=== PATIENT | male | born 1945 | race Caucasian/White ===

== ENCOUNTER 2017-03-26 16:52 | Inpatient (IN) | payer OTHER ==
[~2017-03-26] VITALS: Ht 182.9 cm; Wt 100.2 kg
[2017-03-26] VITALS (7 sets, daily range): BP systolic 103–183; BP diastolic 63–97
--- NOTE | ~2017-03-26 | HC ---
[facility] [place] [address] CONSULTATION Name: SILVANO JACKSON Room #: 244- ADM IN M.R.#: [id number] Admission: 03/26/17 Attend Phys: Olman Brown MD Discharge: Date of : 43 Report #: [id number] THIS REPORT FOR: //name// CC: Olman Sesayradha DATE OF SERVICE: 03/30/2017 ENDOCRINE PROGRESS NOTE Glucoses slowly decreasing in spite of reduction in bedtime basal insulin, this is the only insulin the patient is receiving. FBS lower at 93, decreasing to 73 at lunch, necessitating switch to D5 IV fluids in preparation of tube feeding possibly starting later today. IV glucose is necessary at this time to prevent hypoglycemia as well as any protein wasting prior to institution of higher level tube feeding. Fluid and electrolytes, now being treated by Nephrology. Sodium slightly increased, but calculated serum osmolality actually dropped slightly, otherwise, as per above notes. <ELECTRONICALLY SIGNED> By: Rolan Becerra MD 03/31/17 1217 1500 0017 Rolan Becerra MD /nt
--- NOTE | ~2017-03-26 | EEG ---
[facility] [place] [address] ELECTROENCEPHALOGRAM Name: SILVANO JACKSON Room #: 244-P ADM IN M.R.#: [id number] Admission: 03/26/17 Attend Phys: Olman Brown MD Discharge: Date of : 43 Report #: [id number] THIS REPORT FOR: //name// CC: Olman Moreno [facility] DATE OF SERVICE: 03/27/2017 This patient is being evaluated for altered mental status. The patient's background activity is difficult to determine because a lot of muscle artifact is present, but appeared to be about 8 Hz and 30 microvolts. It is intermixed with theta range slowing on both sides. Photic stimulation is unremarkable. IMPRESSION: Moderately abnormal EEG because it is disorganized and poorly formed and is intermixed with theta range slowing that is a nonspecific abnormality, which can occur with encephalopathy, effect of psychotropic medication, dementia, etc. Clinical correlation and further workup is recommended as clinically indicated. Thank you very much for this referral. <ELECTRONICALLY SIGNED> By: Juliocesar Quintanilla MD 04/01/17 1258 1708 1731 Juliocesar Quintanilla MD /nt
--- NOTE | ~2017-03-26 | HC ---
[facility] [place] [address] CONSULTATION Name: SILVANO JACKSON Room #: 204-P [facility] IN M.R.#: [id number] Admission: 03/26/17 Attend Phys: Olman Brown MD Discharge: Date of : 43 Report #: [id number] THIS REPORT FOR: //name// CC: Olman Moreno [facility] DATE OF SERVICE: 04/04/2017 ENDOCRINE PROGRESS NOTE Glucoses are relatively stable with switch to feeding. Readjusting insulin q.i.d. FBS appropriate at 144 after readjustment of bedtime Tresiba. We will continue to modify insulin dosage. Now that the patient is alert and eating scheduled oral diet without difficulty. <ELECTRONICALLY SIGNED> By: Rolan Becerra MD 04/07/17 1301 1725 024 Rolan Becerra MD /nt
--- NOTE | ~2017-03-26 | HC ---
[facility] [place] [address] CONSULTATION Name: SILVANO JACKSON Room #: 204-P [facility] IN M.R.#: [id number] Admission: 03/26/17 Attend Phys: Olman Brown MD Discharge: 04/07/17 Date of : 43 Report #: [id number] THIS REPORT FOR: //name// CC: Olman Moreno [facility] DATE OF SERVICE: 04/07/2017 Glucoses remain stable, but mildly elevated. FBS slightly elevated, but lower at 197. Highest glucose is 256 at 12 O'clock. The patient is scheduled for dismissal today. If this occurs, we will discharge on Aspart or Lispro t.i.d. with meals at low dose and either Tresiba or the patient's prior concentrated Glargine at bedtime, again at much lower doses than he was on prior to admission. The patient to follow diet. Monitor glucose and follow up with me if desired. Discharge plans in progress. <ELECTRONICALLY SIGNED> By: Rolan Becerra MD 04/08/17 1225 0830 11 Rolan Becerra MD /nt
--- NOTE | ~2017-03-26 | HC ---
[facility] [address] [place] [address] CONSULTATION Name: SILVANO JACKSON Room #: 204-P [facility]..#: [id number] Admission: 03/26/17 Attend Phys: Olman Brown MD Discharge: 04/07/17 Date of : 43 Report #: [id number] THIS REPORT FOR: //name// CC: Olman Sesayradha DATE OF SERVICE: 04/07/2017 HISTORY OF PRESENT ILLNESS: The patient is a 71-year-old white male who was admitted with acute mental status changes. He was noted to have insulin-dependent diabetes mellitus, was found on the drive way, apparently may have been there for up to 4 hours. He was not responding. He was noted to have blood sugar greater than 900, was diagnosed with a hyperosmolar coma. He has gradually improved, was noted to have a metabolic encephalopathy. EEG showed moderately abnormal cerebral dysfunction. He was noted to have pseudohyponatremia. He also has been monitored regarding acute renal insufficiency. He was transferred out of the ICU. Neurology has been involved as well as Nephrology and Internal Medicine. He continues to have some cognitive safety concerns along with balance deficits and we are seeing him in rehabilitation medicine consultation. PAST MEDICAL HISTORY: Prior coronary artery bypass grafting, history of chronic kidney problems, insulin-dependent diabetes mellitus, hypertension, diabetes, stage 4 kidney disease, diabetes noted to be insulin-dependent. MEDICATIONS: Please see the full medication listing. ALLERGIES: No known drug allergies. SOCIAL HISTORY: [place] , [place] 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 He has been involved in assisting around the property running the lawnmower etc. The patient and his will keep in contact intermittently during the day. The has intermittently gone home to check in on him. She cannot get a hold when he leaves his phone somewhere. She did have some questions regarding Life Alert in the future. REVIEW OF SYSTEMS: Did not offer any current complaints of chest pain, shortness of breath, abdominal discomfort. He does have premorbid distal lower extremity numbness with peripheral neuropathy. PHYSICAL EXAMINATION: GENERAL: He is a 71-year-old white male in no obvious distress. He is alert, pleasant, and obese. He follows basic 1 step commands without difficulty. VITAL SIGNS: Temperature 97.8, pulse 60, respirations 16, blood pressure 168/74. NEUROLOGIC: Facies appeared symmetric. Follows basic 1 step commands. Some [facility] [address] [place] [address] CONSULTATION Name: SILVANO JACKSON Room #: 204-P [facility] IN ..#: [id number] Admission: 03/26/17 Attend Phys: Olman Brown MD Discharge: 04/07/17 Date of : 43 Report #: [id number] decreased safety insight was noted, but overall is communicative and pleasant. Tends to defer some answers to his . Facies appeared symmetric. EXTREMITIES: Functional range of motion of both upper extremities with strength grade 4+/5. DTRs are trace to 1. Lower extremities, distal lower extremity numbness, stock in distribution consistent with his peripheral neuropathy. Lower extremity strength is a grade 4 to 4-/5. DTRs are trace to 1. He was min assist with sit to stand. He did ambulate 100 feet mod assist with a front-wheeled walker, some retropulsion. ASSESSMENT: This is a 71-year-old white male with the following problem list: 1. Toxic metabolic encephalopathy. 2. Episode of nonketotic hyperosmolar coma. 3. Initial blood sugar greater than 900. 4. Acute renal insufficiency. 5. Stool hyponatremia. 6. EEG with moderately abnormal cerebral dysfunction. 7. Insulin-dependent diabetes mellitus. 8. Premorbid peripheral neuropathy with diabetes. 9. Hypertension. 10. Past history of coronary artery bypass graft surgery. PLAN: The patient is a candidate for an acute in-hospital inpatient rehabilitation stay. From a preadmission screening perspective: 1. Prior level of function is well delineated above. 2. Expect level of improvement would be for the patient to become modified independent with transfers, mobility and ADLs, so that he can hopefully return back to the home setting. Goal would be to improve his overall cognition and safety as well. Would anticipate a fairly short length of stay, probably 1-2 weeks and potentially longer depending upon how he improves with his balance and CT issues cognition, etc. 3. Evaluation of the patient's risk for clinical complications. He does have the multiple medical comorbidities as noted above. 4. Condition that caused the need for rehabilitation would be the toxic metabolic encephalopathy with the previously noted hyperosmolar coma. 5. Treatments needed would include PT, OT and speech 1 hour per day each five days a week throughout the duration of the acute inpatient rehabilitation stay. 6. Anticipated discharge destination would be back to the home setting with his . He will likely need some home healthcare and likely a Life Alert as discussed above. 7. Anticipated post-discharge treatments would be as noted above. 8. The patient meets diagnostic criteria for an acute in-hospital inpatient rehabilitation stay. He meets medical necessity criteria with the multiple medical comorbidities as noted above. He does have the tolerance for an acute [facility] [address] [place] [address] CONSULTATION Name: SILVANO JACKSON Room #: 204-P [facility] IN ..#: [id number] Admission: 03/26/17 Attend Phys: Olman Brown MD Discharge: 04/07/17 Date of : 43 Report #: [id number] inpatient rehab level of care and has appropriate discharge goals back to the home setting. <ELECTRONICALLY SIGNED> By: Rolan Hernandez MD 04/10/17 1608 1101 0426 Rolan Hernandez MD /nt
--- NOTE | ~2017-03-26 | HC ---
[facility] [place] [address] CONSULTATION Name: SILVANO JACKSON Room #: 244-P [facility] IN M.R.#: [id number] Admission: 03/26/17 Attend Phys: Olman Brown MD Discharge: Date of : 43 Report #: [id number] THIS REPORT FOR: //name// CC: Olman Moreno [facility] DATE OF SERVICE: 03/31/2017 Glucoses stable with reduced dosage of basal insulin. The patient now on increasing rates of tube feeding and off of D5 supplementation. FBS slightly higher at 151. Highest glucose past day equals 88 at 22:00. Total insulin dosage yesterday decreased to 11 units, but may need to be increased with escalation of tube feeding. <ELECTRONICALLY SIGNED> By: Rolan Becerra MD 04/01/17 1055 1221 1957 Rolna Becerra MD /nt
--- NOTE | ~2017-03-26 | HC ---
[facility] [place] [address] CONSULTATION Name: SILVANO JACKSON Room #: 204-P ADM IN M.R.#: [id number] Admission: 03/26/17 Attend Phys: Olman Brown MD Discharge: Date of : 43 Report #: [id number] THIS REPORT FOR: //name// CC: Olman Moreno [facility] DATE OF SERVICE: 04/05/2017 ENDOCRINE PROGRESS NOTE Readjusting q.i.d. insulin to improve glucose control. Also, adding in linagliptin for insulin sparing. P.o. intake stable and normal. FBS equals 204. Highest glucose past day equals 217 at 1700. We will continue to readjust insulin as patient's condition improves. <ELECTRONICALLY SIGNED> By: Rolan Becerra MD 04/06/17 1226 1218 1911 Rolan Becerra MD /nt
--- NOTE | ~2017-03-26 | HC ---
[facility] [place] [address] CONSULTATION Name: SILVANO JACKSON Room #: 244-P [facility] IN M.R.#: [id number] Admission: 03/26/17 Attend Phys: Olman Brown MD Discharge: Date of : 43 Report #: [id number] THIS REPORT FOR: //name// CC: Josh Zamarripa DATE OF SERVICE: 03/27/2017 NEPHROLOGY CONSULTATION DATE OF SERVICE: 03/27/2017 ATTENDING PHYSICIAN: Dr. Brown. REASON FOR CONSULTATION: [id number] kidney disease. HISTORY OF PRESENT ILLNESS: This 71-year-old patient was found poorly responsive and confused at home. He was taken to the Emergency Room and found to have a very high blood sugar. Further evaluation included a negative CAT scan. He was admitted and treated with insulin, then IV fluids. He has gradually improved his numbers and his mental status is lightened and he is now seen in consultation. He has got chronic kidney disease of some duration with elevated creatinine and he had proteinuria on dipstick. PAST MEDICAL HISTORY: He has had coronary artery disease, previous coronary bypass and PCI with coronary stents. He has had hypertension, history of pancreatitis, formerly alcohol abuse, but apparently no longer, mastoiditis treated surgically, and appendectomy. Further history is difficult to obtain as the patient's mental status continues to be very poor. He is seen in ICU, mostly the records taken from the electronic medical records. HOME MEDICATIONS: Including lorazepam, Avodart, metoprolol XL 25 mg daily, insulin, glyburide 5 mg b.i.d., lisinopril 10 mg daily, furosemide 20 mg daily, OxyContin. FAMILY HISTORY: Unobtainable, please see old charts. REVIEW OF SYSTEMS: Unobtainable at the current time due to mental status. SOCIAL HISTORY: Apparently lives at home with his , never smoker, previous alcohol abuse, no longer. PHYSICAL EXAMINATION: GENERAL: This is an elderly gentleman seen in his hospital bed in the ICU. SKIN: Unremarkable, good turgor. SKELETAL: Shows him to be somewhat overweight, well-developed, well nourished. HEENT: Extraocular movements cannot be tested due to his mental status, and he [facility] [address] [address] CONSULTATION Name: SILVANO JACKSON LEAH Room #: [address] [place] [address] IN [facility].#: [id number] Admission: 03/26/17 Attend Phys: Olman Brown MD Discharge: Date of : 43 Report #: [id number] is keeping his eyes tightly shut. He has nasal cannula in place. NECK: Supple. I hear no carotid bruits. CHEST: Slightly coarse breath sounds. HEART: Regular, slightly distant. ABDOMEN: Completely soft and nontender with what looks like a cholecystectomy scar in the right upper quadrant. EXTREMITIES: Show no edema. Pulses are intact. LABORATORY DATA: Initial glucose was 939 with sodium of 126, creatinine currently at 1.8. Previous creatinines in the computer from 4 years ago are more in the 2.5 region. ASSESSMENT AND PLAN: 1. Chronic kidney disease, ____ chronic kidney disease, now with 2+ proteinuria, likely diabetic nephropathy, it is unclear as to whether he is followed by a vamp seamer. We will investigate. He is appropriately on angiotensin converting enzyme inhibitor. I will check urinary proteins. 2. Hyperosmolar coma. This is improving with hypotonic fluid administration and sugars are coming down. 3. History of coronary artery disease status post coronary bypass and PCI with stents. 4. History of alcoholism with pancreatitis. 5. History of mastoiditis requiring surgery. 6. Hypertension. <ELECTRONICALLY SIGNED> By: Dereje Salgado MD 04/01/17 1143 0752 0954 Dereje Salgado MD /nt
--- NOTE | ~2017-03-26 | HC ---
[facility] [place] [address] CONSULTATION Name: SILVANO JACKSON Room #: 244-P [facility] IN M.R.#: [id number] Admission: 03/26/17 Attend Phys: Olman Brown MD Discharge: Date of : 43 Report #: [id number] THIS REPORT FOR: //name// [facility]: [facility] DATE OF SERVICE: 04/01/2017 ENDOCRINE PROGRESS NOTE Glucose stable, allowing for tapering off bedtime basal insulin. This may be given that the patient has pulled out feeding tube and is no longer receiving caloric intake at least for the present. FBS stable at 139. Highest glucose best equals 151 at 0700. We will continue to monitor and readjust insulin, which is currently at 9 units total per day. <ELECTRONICALLY SIGNED> By: Rolan Becerra MD 04/02/17 0822 1058 1121 Rolan Becerra MD /nt
--- NOTE | ~2017-03-26 | HC ---
[facility] [place] [address] CONSULTATION Name: SILVANO JACKSON Room #: 244-P [facility] IN M.R.#: [id number] Admission: 03/26/17 Attend Phys: Olman Brown MD Discharge: Date of : 43 Report #: [id number] THIS REPORT FOR: //name// [facility] DATE OF SERVICE: 04/02/2017 ENDOCRINE PROGRESS NOTE Glucoses lower without feeding. Slightly higher now that the patient is back on tube feeding at full rate. No true hypoglycemia. FBS stable at 126. We will continue to monitor and treat accordingly. Total insulin dosage yesterday decreased to 8 units. <ELECTRONICALLY SIGNED> By: Rolan Becerra MD 04/03/17 1322 0821 0932 Rolan Becerra MD /nt
--- NOTE | ~2017-03-26 | HC ---
[facility] [place] [address] CONSULTATION Name: SILVANO JACKSON Room #: [facility] IN .R.#: [id number] Admission: 03/26/17 Attend Phys: Olman Brown MD Discharge: Date of : 43 Report #: [id number] THIS REPORT FOR: //name// CC: Josh Zamarripa DATE OF SERVICE: 03/26/2017 ENDOCRINE CONSULTATION DATE OF SERVICE: 03/26/2017. SUBJECTIVE: A 71-year-old white male admitted with decreased mental status, hyperglycemia, pancreatitis, etc. History is limited and apparently obtained from the family as the patient is unable to give any information. The patient apparently has a history of alcoholism and pancreatitis, but is reported to have quit drinking many years ago. He also has a history of diabetes and some element of renal disease and has apparently been noncompliant with recommendations for both of these disorders. He is apparently not on any specific diet. He has apparently had prescriptions for insulin, which he has not filled. There is no information regarding recent or long-term glucose control, hemoglobin A1c or other information. The patient was apparently found a comatose and brought to the Emergency Room where glucose was noted to be greater than 900 and the patient appeared to be nonacidotic and in a hyperosmolar state. The patient has been given limited IV fluids and put on insulin drip as well as IV potassium, blood sugar has fallen significantly as would be expected with the intravenous insulin. Otherwise, there is no pertinent clinical information available except for the information mentioned above. CURRENT MEDICATIONS: At the time of consultation include a low dose IV fluids, potassium, olanzapine, valproate, magnesium oxide, insulin by drip at 8 units per hour, haloperidol and possibly other medication. OBJECTIVE: LABORATORY DATA: Admission glucose was 939, quickly dropping to 671 with intravenous glucose and later in the mid 400s, sodium 133, potassium 4.8, chloride 98, CO2 24, anion gap 11, BUN 27, creatinine 2.5 (which is similar to prior values), AST 34, lipase 1131, total bilirubin 0.5, calcium 9.6, phosphorus 3.8, magnesium 2.2, alkaline phosphatase 146, SGPT 58, total protein 7.4, albumin 3.5, pH was essentially within normal limits. PHYSICAL EXAMINATION: GENERAL: Well-nourished, well-developed, obese 71-year-old white male, in no acute distress. The patient is not responsive to verbal or tactile stimuli. [place] [address] CONSULTATION Name: SILVANO JACKSON Room #: 244-P [facility]#: [id number] Admission: 03/26/17 Attend Phys: Olman Brown MD Discharge: Date of : 43 Report #: [id number] VITAL SIGNS: Height is reported by family to be 6 feet and weight 230 pounds. The patient is 98.6 by one determination and 101.7 by another. Skin turgor is definitely diminished. Heart rate 87 and regular. Blood pressure 138/97. EYES: PERRL. CHEST: Clear. HEART: Regular rhythm without murmurs, rubs or gallops. ABDOMEN: Benign, without masses, tenderness, organomegaly. Bowel sounds active. EXTREMITIES: Show no edema, cyanosis or clubbing. Peripheral pulses 2+ and equal bilaterally. Deep tendon reflexes 2+ bilaterally. ASSESSMENT: 1. Diabetes mellitus out of control with chronic poor compliance and hyperosmolar coma. The patient does not have ketoacidosis, but unfortunately has been treated with limited fluid and relatively high dose insulin, which can actually worsen peripheral hypoxia by interfering with oxygen delivery and peripheral tissues. The patient's main problem at this time is not hyperglycemia, but severe dehydration. 2. Exogenous obesity with insulin resistance and hyperinsulinemia. 3. Moderate chronic renal failure. 4. Chronic poor compliance, apparently in all areas of medical care. PLAN: 1. We will evaluate prior control with hemoglobin A1c and check to see if the patient is making endogenous insulin through use of C-peptide. 2. We will hydrate vigorously monitoring renal function. This should allow for glucose lowering by itself without needing intervention with insulin. We will then utilize low-dose insulin as needed to fine tune glucose control. 3. Meanwhile, we will monitor electrolytes, BUN, creatinine, phosphorus, etc., to avoid any metabolic abnormalities that may develop with treatment. 4. Hopefully, the patient's mental status will return to whatever it was prior to this event, it is not clear whether the patient will be receptive to any diet and diabetes education to improve compliance in the future and avoid repetition of these episodes. Thank you very much for this consultation. I will continue to follow the patient with you for evaluation and treatment of diabetes mellitus and abnormalities. <ELECTRONICALLY SIGNED> By: Rolan Becerra MD 03/27/17 1110 2246 0023 Rolan Becerra MD /nt
--- NOTE | ~2017-03-26 | HC ---
[facility] [place] [address] CONSULTATION Name: SILVANO JACKSON Room #: 244-P [facility] IN M.R.#: [id number] Admission: 03/26/17 Attend Phys: Olman Brown MD Discharge: Date of : 43 Report #: [id number] THIS REPORT FOR: //name// [facility]: [facility] DATE OF SERVICE: 03/29/2017 Mental status may be slightly clear, but remains severely depressed. Laboratory studies continue to stabilize. Sodium has plateaued at 141, potassium 3.5, chloride 111, CO2 20, BUN 10, creatinine 1.5, glucose 48, phosphorus 3.2. Urine and plasma osmolality pending. Calculated serum osmolality is still acceptable at 295 yesterday and 294 today. This is assuming that sodium does not continue to increase, which would be a concern given the potential for recent brain injury and neurologic abnormalities due to severe alterations in serum osmolality. We will continue to monitor. Glucoses have been well controlled with only low dose basal insulin. <ELECTRONICALLY SIGNED> By: Rolan Becerra MD 03/30/17 1454 1147 0243 Rolan Becerra MD /nt
--- NOTE | ~2017-03-26 | HC ---
[facility] [place] [address] CONSULTATION Name: SILVANO JACKSON Room #: 244- ADM IN M.R.#: [id number] Admission: 03/26/17 Attend Phys: Olman Brown MD Discharge: Date of : 41 Report #: [id number] THIS REPORT FOR: //name// CC: Olman Zamarripa DATE OF SERVICE: 03/28/2017 ENDOCRINE PROGRESS NOTE: Mental status continues to be diminished; however, laboratory studies continue to improve. Sodium 139, potassium 4.3, chloride 109, CO2 20. BUN has dropped to 14, creatinine to 1.6. Phosphorus was replaced with one dose of IV potassium phosphate and is now up to 39. Glucoses have improved with low dose prandial and one dose of basal insulin overnight. Hemoglobin A1c highly elevated at 15.2 indicating as expected very poor long-term prior glucose control. <ELECTRONICALLY SIGNED> By: Rolan Becerra MD 03/29/17 1140 1054 1232 Rolan Becerra MD /nt
--- NOTE | ~2017-03-26 | HC ---
[facility] [place] [address] CONSULTATION Name: SILVANO JACKSON Room #: 244-P ADM IN M.R.#: [id number] Admission: 03/26/17 Attend Phys: Olman Brown MD Discharge: Date of : 41 Report #: [id number] THIS REPORT FOR: //name// CC: Olman Moreno [facility] DATE OF SERVICE: 03/30/2017 ADDENDUM: Review of total I and O's since admission shows the patient has plus only 6 liters while it would be expected that he would have needed to regain 9-12 liters after being admitted with hyperosmolar coma and severe dehydration. We will continue to monitor to ensure that diuresis does not ensue. <ELECTRONICALLY SIGNED> By: Rolan Becerra MD 03/31/17 1218 1504 0007 Rolan Becerra MD /nt
--- NOTE | ~2017-03-26 | HC ---
[facility] [place] [address] CONSULTATION Name: SILVANO JACKSON Room #: 204-P ADM IN M.R.#: [id number] Admission: 03/26/17 Attend Phys: Olman Brown MD Discharge: Date of : 41 Report #: [id number] THIS REPORT FOR: //name// [facility]: [facility] DATE OF SERVICE: 04/06/2017 ENDOCRINE PROGRESS NOTE Glucoses are stable, but still mildly high in spite of slight cautious increases in insulin dosage. FBS mildly elevated at 215. Highest glucose past day equals 239 at 12:00. Continuing linagliptin for insulin sparing, dietary intake normalizing. We will continue to cautiously readjust insulin while the patient's education continues. <ELECTRONICALLY SIGNED> By: Rolan Becerra MD 04/07/17 0826 1230 2305 Rolan Becerra MD /nt
--- NOTE | ~2017-03-26 | EKG ---
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 : [id number] Requested By: Viktor Vargas Order Number: [id number] MD: Jem Pascual Measurements Intervals [place] Rate: 83 P: VT: QRS: 93 QRSD: 118 T: 126 QT: 393 QTc: 462 Interpretive Statements Sinus rhythm Left posterior fascicular block Nonspecific ST and T wave abnormality Compared to ECG 03/22/2013 03:47:40 No significant change was found Electronically Signed On 03-27-2017 7:59:12 CDT by Jem Pascual [email or web address] <ELECTRONICALLY SIGNED> By: Jem Pascual MD, [facility] 03/27/17 0759 1717 171 Jem Pascual MD, [facility] /EPI
--- NOTE | ~2017-03-26 | HC ---
[facility] [place] [address] CONSULTATION Name: SILVANO JACKSON Room #: 244-P ADM IN M.R.#: [id number] Admission: 03/26/17 Attend Phys: Olman Brown MD Discharge: Date of : 43 Report #: [id number] THIS REPORT FOR: //name// [facility]: [facility] DATE OF SERVICE: 04/03/2017 ENDOCRINE PROGRESS NOTE Readjusting insulin as the patient now on TPN without added insulin. FBS higher at 193 necessitating return to prandial insulin. Total insulin dosage yesterday increased with increasing Glargine and we will add insulin to the TPN in an effort to lower subq insulin requirement throughout the day even as TPN increases. <ELECTRONICALLY SIGNED> By: Rolan Becerra MD 04/03/17 1322 1005 1158 Rolan Becerra MD /nt
--- NOTE | ~2017-03-26 | HC ---
[facility] [place] [address] CONSULTATION Name: SILVANO JACKSON Room #: [facility] IN M.R.#: [id number] Admission: 03/26/17 Attend Phys: Olman Brown MD Discharge: Date of : 43 Report #: [id number] THIS REPORT FOR: //name// [facility] DATE OF SERVICE: 03/27/2017 ENDOCRINE PROGRESS NOTE vigorous hydration without insulin. The patient remains very lethargic and minimally responsive, although vital signs are stable and skin turgor is improving. No signs of fluid retention. Discussion with the reports that the patient may have initiated SGLT2 inhibitor therapy in the recent past, which could have contributed to his dehydration. Laboratory values slowly improving with hydration. Hemoglobin A1c pending. C-peptide 7.0, showing excellent endogenous insulin secretion. Sodium 137, potassium 4.1, chloride 109, CO2 of 22, BUN 18, creatinine has dropped to 1.6, glucoses are in the 200 to low 300 range without insulin. Phosphorus is still adequate at 2.5 without a phosphorus supplementation, although this may be needed in the near future. We will continue hydration at decreasing rate and institute subq q.i.d. insulin as needed in an effort to slowly and gradually improve glucose control. <ELECTRONICALLY SIGNED> By: Rolan Becerra MD 03/28/17 1051 1114 1330 Rolan Becerra MD /bradly
[~2017-03-26 16:52] MED LIST: ASPIRIN325 OR; ASPIRIN325 PO; ATIVAN0.5 MG; ATORVASTATIN CA40 MG PO; AVODART0.5 MG; B-100 COMPLEX100 MG OR; CIPRO250 M1 PO; CIPRODEX OTIC7.5 ML; DIABETA 5MG TABL5 MG PO; FISH OIL 1,0001 EAC5 PO; FISH OIL 1,2001 EAC3; FLOXIN OTI0.3 %/5 M1 OT; GLUCOPHAGE1000 MG OR; GLYBURIDE 5 MG T5 M1 OR; HYDROCODON-ACE1 EAC9 PO; LANTUS SUBQ; LASIX 40 MG TAB40 M1 PO; LISINOPRIL20 MG PO; LORTAB 5 MG/5001 TAB PO; MEVACOR40 MG OR; MULTIVITAMINS OR; MULTIVITAMINS1 EAC7 PO; NEOMYCIN/BACIT3.5 G1; NORCO 5-325 TA1 EACH PO; NOVOLOG100 UNIT/1 SUBQ; OXYCODONE HCL5 M1; OXYCONTIN10 M1 PO; PERCOCET 5-3251 EACH PO; PHISOHEX148 ML TP; POTASSIUM20 PO; SIMVASTATIN40 MG PO; SUPER B COMPLE1 EAC3 PO; TOPROL XL25 MG PO; VORICONAZOLE200 MG; ZOSYN 3.3753.375 GM IV
[2017-03-26 17:08] LABS: ABSOLUTE NEUTROPHILS 4.2 thou/uL (1.4-8.2); BASOPHILS 0.7 % (0.0-2.0); EOSINOPHILS 0.7 % (0.0-3.0); HEMATOCRIT 37.5 % (42.0-52.0); HEMOGLOBIN 12.5 gm/dL (14.0-18.0); LYMPHOCYTES 11.8 % (24.0-44.0); MCH 28.2 pg (26.0-34.0); MCHC 33.3 g/dL (28.0-37.0); MCV 84.9 fL (80.0-100.0); MONOCYTES 5.2 % (1.0-8.0); PLATELET COUNT 84 thou/uL (150-400); POLYS 81.6 % (36.0-66.0); RBC 4.42 mil/uL (4.50-6.00); RDW 13.4 % (10.5-14.5); WBC 5.2 thou/uL (4.0-11.0)
[2017-03-26 17:12] LABS: MANUAL DIFF NO
[2017-03-26 17:18] LABS: ANION GAP 8 mmol/L (7-16); BUN 27 mg/dL (7-18); CALCIUM 9.4 mg/dL (8.5-10.1); CHLORIDE 92 mmol/L (98-107); CO2 26 mmol/L (21-32); CREATININE 2.7 mg/dL (0.7-1.3); POTASSIUM 5.4 mmol/L (3.5-5.1); SODIUM 126 mmol/L (136-145)
[2017-03-26 17:27] LABS: ACETAMINOPHEN < 2 ug/mL (10-30); ALBUMIN 3.5 g/dL (3.4-5.0); ALKALINE PHOSPHATASE 146 U/L (46-116); MAGNESIUM 2.2 mg/dL (1.8-2.4); SALICYLATE < 2.8 mg/dL (2.8-20.0); SGOT 34 U/L (15-37); SGPT 58 U/L (30-65); TOTAL BILIRUBIN 0.5 mg/dL (<0.1-1.0); TOTAL PROTEIN 7.4 g/dL (6.4-8.2)
[2017-03-26 17:34] LABS: ANISOCYTOSIS 1+
[2017-03-26 17:35] LABS: POLYCHROMASIA OCCASIONAL
[2017-03-26 17:43] LABS: ABG SAMPLE TYPE VENOUS; BE(vivo) -3.9 mmol/L (-2 to +3); HCO3 23.7 mmol/L (22.0-26.0); LACTATE 2.97 mmol/L (0.5-2.0); O2(CT) 11.5 mL/dL (15.0-23.0); O2Hb VENOUS 60.3 (65.0-85.0); PCO2 VENOUS 53.7 mmHg (41.0-51.0); PO2 VENOUS 31.5 mmHg (35.0-45.0); STICK SITE LINE; sO2 VENOUS 51.2 % (65.0-85.0); tCO2 25.4 mmol/L (24.0-30.0)
[2017-03-26 17:48] LABS: GLUCOSE 939 mg/dL (74-106)
[2017-03-26 19:15] LABS: CALCIUM 9.6 mg/dL (8.5-10.1); CREATININE 2.5 mg/dL (0.7-1.3); MAGNESIUM 2.2 mg/dL (1.8-2.4); POTASSIUM 4.8 mmol/L (3.5-5.1)
[2017-03-26] MEDS ORDERED: LISINOPRIL10 MG PO (20:41)
[2017-03-26] MEDS ORDERED: TOUJEO SOL300 UNIT/1 SUBQ (20:42)
[2017-03-26] MEDS ORDERED: ZOLOFT100 MG PO (20:42)
[2017-03-26] MEDS ORDERED: VENTOLIN HFA 1818 GM INH (20:43)
[2017-03-26] MEDS ORDERED: FUROSEMIDE 20 M20 M1 PO (20:43)
[2017-03-26] MEDS ORDERED: ATORVASTATIN CA40 MG PO (20:45)
[2017-03-26 21:40] LABS: ABG SAMPLE TYPE ARTERIAL; BE(vivo) -4.2 mmol/L (-2 to +3); HCO3 20.2 mmol/L (22.0-26.0); LACTATE 2.18 mmol/L (0.5-2.0); O2(CT) 16.4 mL/dL (15.0-23.0); O2Hb 96.6 % (92.0-98.0); PCO2 34.9 mmHg (35.0-45.0); STICK SITE R.RADIAL; pH 7.381 (7.360-7.450); sO2 97.3 % (92.0-98.0); tCO2 21.3 mmol/L (24.0-30.0)
[2017-03-26 23:17] LABS: CALCIUM 8.7 mg/dL (8.5-10.1); CREATININE 2.3 mg/dL (0.7-1.3); POTASSIUM 4.3 mmol/L (3.5-5.1)
[2017-03-26 23:25] LABS: CHOLESTEROL 173 mg/dL (<200); HDL CHOLESTEROL 29 mg/dL (>40); LDL CHOLESTEROL 102 mg/dL (<100); TRIGLYCERIDE 210 mg/dL (<150); VLDL 42 mg/dL (<40)
[2017-03-26 23:26] LABS: SERUM ASSESSMENT Clear
[2017-03-27] VITALS (27 sets, daily range): BP systolic 124–177; BP diastolic 55–135
[2017-03-27 05:37] LABS: CALCIUM 7.5 mg/dL (8.5-10.1); CREATININE 1.8 mg/dL (0.7-1.3); PHOSPHORUS 2.6 mg/dL (2.5-4.9)
[2017-03-27 05:44] LABS: URINE BILIRUBIN NEGATIVE (Negative); URINE BLOOD 3+ (Negative); URINE COLOR YELLOW; URINE GLUCOSE-RANDOM* 3+ (Negative); URINE KETONES TRACE (Negative); URINE NITRITE NEGATIVE (Negative); URINE PROTEIN (DIPSTICK) 2+ (Negative); URINE UROBILINOGEN 0.2 E.U./dl (0.2-1.0)
[2017-03-27 05:50] LABS: BACTERIA 1-9 Few /HPF (None Seen); CRYSTALS None Seen /LPF (None Seen); FINE GRANULAR CASTS 0-3 Few /LPF (None Seen); SQUAMOUS 0-3 Few /LPF (0-3); URINE RBC 0-2 Rare /HPF (0-2); URINE WBC 0-5 Rare /HPF (0-5)
[2017-03-27 05:52] LABS: AMP/METHAMP Negative (Negative); BARBITURATES Negative (Negative); BENZODIAZEPINES Negative (Negative); COCAINE Negative (Negative); METHADONE Negative (Negative); OPIATES Negative (Negative); PCP Negative (Negative); THC Negative (Negative)
[2017-03-27 10:16] LABS: BASOPHILS 0.7 % (0.0-2.0); EOSINOPHILS 0.5 % (0.0-3.0); HEMATOCRIT 28.4 % (42.0-52.0); LYMPHOCYTES 18.3 % (24.0-44.0); MCHC 34.6 g/dL (28.0-37.0); MCV 83.8 fL (80.0-100.0); MONOCYTES 7.3 % (1.0-8.0); PLATELET COUNT 89 thou/uL (150-400); POLYS 73.2 % (36.0-66.0); RBC 3.38 mil/uL (4.50-6.00); RDW 13.4 % (10.5-14.5); WBC 8.1 thou/uL (4.0-11.0)
[2017-03-27 10:17] LABS: HEMOGLOBIN 9.8 gm/dL (14.0-18.0); MANUAL DIFF NO
[2017-03-27 10:29] LABS: CALCIUM 7.5 mg/dL (8.5-10.1); CREATININE 1.6 mg/dL (0.7-1.3); PHOSPHORUS 2.5 mg/dL (2.5-4.9); POTASSIUM 4.1 mmol/L (3.5-5.1)
[2017-03-27 21:13] LABS: CALCIUM 7.8 mg/dL (8.5-10.1); CREATININE 1.4 mg/dL (0.7-1.3); PHOSPHORUS 2.3 mg/dL (2.5-4.9); POTASSIUM 4.2 mmol/L (3.5-5.1)
[2017-03-28] VITALS (20 sets, daily range): BP systolic 113–189; BP diastolic 58–130
[2017-03-28 01:11] LABS: 25-HYDROXY TOTAL 17.1 ng/mL (30.0-100.0); GLYCOHEMOGLOBIN (HGB A1C) 15.2 % (4.8-5.6)
[2017-03-28 06:34] LABS: HEMATOCRIT 32.5 % (42.0-52.0); HEMOGLOBIN 11.3 gm/dL (14.0-18.0); MCHC 34.7 g/dL (28.0-37.0); MCV 83.5 fL (80.0-100.0); RBC 3.89 mil/uL (4.50-6.00); RDW 13.3 % (10.5-14.5); WBC 7.4 thou/uL (4.0-11.0)
[2017-03-28 06:43] LABS: CREATININE 1.6 mg/dL (0.7-1.3); POTASSIUM 4.3 mmol/L (3.5-5.1)
[2017-03-28 17:09] LABS: CALCIUM 8.2 mg/dL (8.5-10.1); CREATININE 1.4 mg/dL (0.7-1.3); PHOSPHORUS 3.1 mg/dL (2.5-4.9)
[2017-03-28 21:34] LABS: CREATININE 1.5 mg/dL (0.7-1.3); PHOSPHORUS 3.1 mg/dL (2.5-4.9); POTASSIUM 3.9 mmol/L (3.5-5.1)
[2017-03-29] VITALS (26 sets, daily range): BP systolic 111–200; BP diastolic 52–144
[2017-03-29 06:21] LABS: HEMATOCRIT 30.8 % (42.0-52.0); HEMOGLOBIN 10.8 gm/dL (14.0-18.0); MCH 29.2 pg (26.0-34.0); MCHC 34.9 g/dL (28.0-37.0); MCV 83.5 fL (80.0-100.0); RBC 3.69 mil/uL (4.50-6.00); RDW 13.8 % (10.5-14.5); WBC 5.7 thou/uL (4.0-11.0)
[2017-03-29 06:45] LABS: CALCIUM 8.1 mg/dL (8.5-10.1); CREATININE 1.5 mg/dL (0.7-1.3); POTASSIUM 3.5 mmol/L (3.5-5.1)
[2017-03-29 16:07] LABS: CREATININE 1.6 mg/dL (0.7-1.3); PHOSPHORUS 3.1 mg/dL (2.5-4.9); POTASSIUM 3.8 mmol/L (3.5-5.1)
[2017-03-30] VITALS (24 sets, daily range): BP systolic 140–202; BP diastolic 62–112
[2017-03-30 05:25] LABS: HEMATOCRIT 31.9 % (42.0-52.0); HEMOGLOBIN 10.7 gm/dL (14.0-18.0); MCH 28.2 pg (26.0-34.0); MCHC 33.7 g/dL (28.0-37.0); MCV 83.7 fL (80.0-100.0); RBC 3.81 mil/uL (4.50-6.00); WBC 6.1 thou/uL (4.0-11.0)
[2017-03-30 05:42] LABS: CALCIUM 8.3 mg/dL (8.5-10.1); CREATININE 1.4 mg/dL (0.7-1.3); POTASSIUM 3.4 mmol/L (3.5-5.1)
[2017-03-30 12:10] LABS: ALPHA TOCOPHEROL 14.4 mg/L (5.3-17.5)
[2017-03-31] VITALS (26 sets, daily range): BP systolic 148–215; BP diastolic 60–153
[2017-03-31 03:56] LABS: ALBUMIN 2.4 g/dL (3.4-5.0); CALCIUM 8.6 mg/dL (8.5-10.1); CREATININE 1.5 mg/dL (0.7-1.3); POTASSIUM 3.7 mmol/L (3.5-5.1)
[2017-03-31 04:51] LABS: HEMATOCRIT 34.6 % (42.0-52.0); HEMOGLOBIN 11.6 gm/dL (14.0-18.0); MCH 27.9 pg (26.0-34.0); MCHC 33.6 g/dL (28.0-37.0); MCV 83.1 fL (80.0-100.0); RBC 4.17 mil/uL (4.50-6.00); RDW 14.1 % (10.5-14.5); WBC 6.2 thou/uL (4.0-11.0)
[2017-04-01] VITALS (23 sets, daily range): BP systolic 142–211; BP diastolic 62–127
[2017-04-01 04:18] LABS: ALBUMIN 2.7 g/dL (3.4-5.0); CALCIUM 8.9 mg/dL (8.5-10.1); CREATININE 1.6 mg/dL (0.7-1.3); PHOSPHORUS 3.5 mg/dL (2.5-4.9); POTASSIUM 3.7 mmol/L (3.5-5.1)
[2017-04-01 04:23] LABS: HEMATOCRIT 36.1 % (42.0-52.0); HEMOGLOBIN 11.8 gm/dL (14.0-18.0); MCH 27.7 pg (26.0-34.0); MCHC 32.6 g/dL (28.0-37.0); MCV 85.1 fL (80.0-100.0); RBC 4.24 mil/uL (4.50-6.00); WBC 8.7 thou/uL (4.0-11.0)
[2017-04-02] VITALS (25 sets, daily range): BP systolic 106–183; BP diastolic 48–111
[2017-04-02 06:29] LABS: HEMATOCRIT 30.5 % (42.0-52.0); HEMOGLOBIN 10.6 gm/dL (14.0-18.0); MCH 28.9 pg (26.0-34.0); MCHC 34.8 g/dL (28.0-37.0); RBC 3.67 mil/uL (4.50-6.00); RDW 14.2 % (10.5-14.5); WBC 5.8 thou/uL (4.0-11.0)
[2017-04-02 06:41] LABS: ALBUMIN 2.2 g/dL (3.4-5.0); CREATININE 1.8 mg/dL (0.7-1.3); PHOSPHORUS 4.1 mg/dL (2.5-4.9); POTASSIUM 3.5 mmol/L (3.5-5.1)
[2017-04-02 06:44] LABS: APTT 30.9 Seconds (24.5-32.8)
[2017-04-03] VITALS (9 sets, daily range): BP systolic 90–185; BP diastolic 57–88
[2017-04-03 05:51] LABS: ALBUMIN 2.4 g/dL (3.4-5.0); CREATININE 1.7 mg/dL (0.7-1.3); PHOSPHORUS 3.7 mg/dL (2.5-4.9); POTASSIUM 3.6 mmol/L (3.5-5.1); TOTAL BILIRUBIN 0.5 mg/dL (<0.1-1.0); TOTAL PROTEIN 6.3 g/dL (6.4-8.2)
[2017-04-04] VITALS (23 sets, daily range): BP systolic 106–195; BP diastolic 60–108
[2017-04-04 03:54] LABS: ALBUMIN 2.2 g/dL (3.4-5.0); CALCIUM 8.5 mg/dL (8.5-10.1); CREATININE 1.7 mg/dL (0.7-1.3); PHOSPHORUS 3.3 mg/dL (2.5-4.9); POTASSIUM 3.1 mmol/L (3.5-5.1)
[2017-04-05] VITALS (20 sets, daily range): BP systolic 103–179; BP diastolic 43–88
[2017-04-05 05:18] LABS: ABSOLUTE NEUTROPHILS 2.6 thou/uL (1.4-8.2)
[2017-04-05 05:21] LABS: BASOPHILS 1.1 % (0.0-2.0); EOSINOPHILS 3.3 % (0.0-3.0); HEMATOCRIT 27.4 % (42.0-52.0); HEMOGLOBIN 9.4 gm/dL (14.0-18.0); LYMPHOCYTES 28.6 % (24.0-44.0); MCH 28.6 pg (26.0-34.0); MCHC 34.2 g/dL (28.0-37.0); MCV 83.4 fL (80.0-100.0); MONOCYTES 10.7 % (1.0-8.0); PLATELET COUNT 97 thou/uL (150-400); POLYS 56.3 % (36.0-66.0); RBC 3.29 mil/uL (4.50-6.00); RDW 13.6 % (10.5-14.5); WBC 4.7 thou/uL (4.0-11.0)
[2017-04-05 05:24] LABS: MANUAL DIFF NO
[2017-04-05 05:34] LABS: ALBUMIN 2.1 g/dL (3.4-5.0); CALCIUM 8.1 mg/dL (8.5-10.1); CREATININE 2.3 mg/dL (0.7-1.3); PHOSPHORUS 3.4 mg/dL (2.5-4.9); POTASSIUM 3.8 mmol/L (3.5-5.1)
[2017-04-06 00:45] VITALS: BP 131/50
[2017-04-06 04:30] VITALS: BP 146/62
[2017-04-06 05:40] LABS: ABSOLUTE NEUTROPHILS 3.4 thou/uL (1.4-8.2); BASOPHILS 0.8 % (0.0-2.0); HEMATOCRIT 29.1 % (42.0-52.0); HEMOGLOBIN 9.9 gm/dL (14.0-18.0); LYMPHOCYTES 28.2 % (24.0-44.0); MCH 28.3 pg (26.0-34.0); MCHC 33.9 g/dL (28.0-37.0); MCV 83.6 fL (80.0-100.0); MONOCYTES 10.4 % (1.0-8.0); PLATELET COUNT 106 thou/uL (150-400); POLYS 57.6 % (36.0-66.0); RBC 3.48 mil/uL (4.50-6.00); RDW 13.7 % (10.5-14.5); WBC 5.9 thou/uL (4.0-11.0)
[2017-04-06 05:53] LABS: MANUAL DIFF NO
[2017-04-06 05:57] LABS: ALBUMIN 2.1 g/dL (3.4-5.0); CALCIUM 8.1 mg/dL (8.5-10.1); CREATININE 2.2 mg/dL (0.7-1.3); PHOSPHORUS 3.4 mg/dL (2.5-4.9); POTASSIUM 3.8 mmol/L (3.5-5.1)
[2017-04-06 07:28] VITALS: BP 152/67
[2017-04-06 11:18] VITALS: BP 140/62
[2017-04-06 16:19] VITALS: BP 161/71
[2017-04-06 19:45] VITALS: BP 152/76
[2017-04-07 03:20] VITALS: BP 148/61
[2017-04-07 06:57] LABS: ABSOLUTE NEUTROPHILS 2.2 thou/uL (1.4-8.2); BASOPHILS 0.9 % (0.0-2.0); EOSINOPHILS 3.7 % (0.0-3.0); HEMATOCRIT 28.5 % (42.0-52.0); HEMOGLOBIN 9.7 gm/dL (14.0-18.0); LYMPHOCYTES 33.7 % (24.0-44.0); MCH 28.6 pg (26.0-34.0); MCHC 34.1 g/dL (28.0-37.0); MCV 84.1 fL (80.0-100.0); MONOCYTES 11.1 % (1.0-8.0); POLYS 50.6 % (36.0-66.0); RBC 3.39 mil/uL (4.50-6.00); RDW 13.9 % (10.5-14.5); WBC 4.4 thou/uL (4.0-11.0)
[2017-04-07 06:58] LABS: MANUAL DIFF NO
[2017-04-07 07:06] LABS: ALBUMIN 2.2 g/dL (3.4-5.0); CALCIUM 8.2 mg/dL (8.5-10.1); CREATININE 2.4 mg/dL (0.7-1.3); PHOSPHORUS 3.9 mg/dL (2.5-4.9); POTASSIUM 3.9 mmol/L (3.5-5.1)
[2017-04-07 07:13] VITALS: BP 168/74
[2017-04-07 10:30] LABS: PLATELET COUNT 87 thou/uL (150-400)
[2017-04-07] MEDS ORDERED: ENOXAPARIN40 MG/0.1 SUBQ (12:31)
[2017-04-07 12:45] VITALS: BP 166/68
[2017-04-07 15:25] VITALS: BP 18/89
== END 2017-04-07 16:22 | DRG 637 ==
LOC: ER 16:52 → EROBS 18:07 → ICU 18:07 → 2N 04-05 18:43
PROVIDERS: Emergency Medicine; Family Medicine; Hospitalist; Internal Medicine Endocrinology, Diabetes & Metabolism; Internal Medicine Nephrology; Psychiatry & Neurology Neurology
PROC: B548ZZA Ultrasonography of Superior Vena Cava, Guidance (ICD-10-PCS; principal; 2017-04-02)
PROC: 02HV33Z Insertion of Infusion Device into Superior Vena Cava, Percutaneous Approach (ICD-10-PCS; principal; 2017-04-02)
PROC: 3E0436Z Introduction of Nutritional Substance into Central Vein, Percutaneous Approach (ICD-10-PCS; 2017-04-04)
DX: E11.00 Type 2 diabetes mellitus with hyperosmolarity without nonketotic hyperglycemic-hyperosmolar coma (NKHHC) (principal); G92 Toxic encephalopathy; K85.90 Acute pancreatitis without necrosis or infection, unspecified; N17.9 Acute kidney failure, unspecified; E87.0 Hyperosmolality and hypernatremia; N18.4 Chronic kidney disease, stage 4 (severe); E66.09 Other obesity due to excess calories; I25.10 Atherosclerotic heart disease of native coronary artery without angina pectoris; I12.9 Hypertensive chronic kidney disease with stage 1 through stage 4 chronic kidney disease, or unspecified chronic kidney disease; E87.6 Hypokalemia; E11.51 Type 2 diabetes mellitus with diabetic peripheral angiopathy without gangrene; E11.22 Type 2 diabetes mellitus with diabetic chronic kidney disease; E87.5 Hyperkalemia; Z68.29 Body mass index [BMI] 29.0-29.9, adult; Z95.5 Presence of coronary angioplasty implant and graft; Z79.4 Long term (current) use of insulin; Z95.1 Presence of aortocoronary bypass graft; Z90.49 Acquired absence of other specified parts of digestive tract
CPT/HCPCS: 10078; 10081; 27000

== ENCOUNTER 2017-04-07 13:29 | Inpatient (IN) | payer OTHER ==
[~2017-04-07] VITALS: Ht 180.3 cm; Wt 101.9 kg
--- NOTE | ~2017-04-07 | HC ---
[facility] [place] [address] CONSULTATION Name: SILVANO JACKSON Room #: 504-1 [facility] IN M..#: [id number] Admission: 04/07/17 Attend Phys: Rolan Hernandez MD Discharge: 04/18/17 Date of : 41 Report #: [id number] THIS REPORT FOR: //name// CC: Rolan Mcadamse [facility] DATE OF SERVICE: 04/12/2017 ATTENDING PHYSICIAN: Rolan Hernandez M.D. SECURITY REPRESENTATIVE: Ronn Ramirez, PhD CLINICAL PRESENTATION: The patient is a 71-year-old male, admitted to the rehabilitation unit at [facility] for a comprehensive inpatient rehabilitation program to improve functional mobility, activities of daily living and mental status secondary to deficits associated with a toxic metabolic encephalopathy. The patient had an episode of nonketotic hyperosmolar coma. His blood sugar was greater than 900. Diagnoses include acute renal insufficiency, pseudohyponatremia, EEG with moderately abnormal cerebral dysfunction, insulin-dependent diabetes mellitus, premorbid peripheral neuropathy with diabetes, hypertension, past surgical history of coronary artery bypass graft and ataxia. A complete description of his medical condition and history along with medications can be found in his medical record. Neuropsychological consultation was requested to provide assistance in the assessment of cognitive and emotional status and to provide recommendations and services. Prior to this most recent medical event, he reports being independent with driving and managing instrumental activities of daily living. The patient is a high school graduate. He reports having had 3 years of college. 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 He is with one child and one grandchild. He does not report a history of treatment for depression or anxiety prior to this medical event. TECHNIQUES UTILIZED: Clinical interview, review of medical records, staff consultation and behavioral observation, mini mental status exam 2 standard version, calibrated ideational fluency assessment (letter and category) and a brief abstract reasoning test. EXAMINATION FINDINGS: The patient was alert and cooperative with the assessment. He accurately described events surrounding his admission. The patient reports about a 10-day period of amnesia. His last memory is driving his tractor with a subsequent awakening in the hospital about 10 days later. He recognizes his poor management of diabetes is contributing to his medical condition. He describes subjective anxiety and depression at this time. His mood is anxious in regard to his current need for catheter. He is concerned [facility] [address] [place] [address] CONSULTATION Name: SILVANO JACKSON LEAH Room #: 504-1 [facility] IN .R.#: [id number] Admission: 04/07/17 Attend Phys: Rolan Hernandez MD Discharge: 04/18/17 Date of : 43 Report #: [id number] that he may require a continual catheterization. He describes symptoms to primarily involve walking. He does not report difficulty with memory and only slight difficulty with word finding. Sleep and appetite are described as improving and almost within normal limits. His performance on the MMSE 2 brief version is in the mild range of impairment with a raw score of 13 of 16 and a T-score of 36. He was 3/3 for initial registration, 5/5 for orientation to time and 4/[address]. He was 1/3 for immediate recall of 3 items after a brief time delay and distraction. His performance on the MMSE-2 standard version is within normal limits with a raw score 27 of 30 and a T-score of 50. His performance in verbal fluency suggests mild impairment. Letter fluency was in the mild range of impairment with a raw score of 15 and a T-score of 36. Category fluency is within the mild range of impairment with a T-score of 38. Overall, total fluencies in the mild to moderate range of impairment with a T-score of 33. Lowered performance in verbal fluency often is associated with deficits in executive functioning. Higher level planning and problem solving are likely to require help. While he performed within normal limits on a brief abstract reasoning was (raw score 7 of 8), taking initiative in planning and problem solving are likely to require increased supervision to maintain safety. DIAGNOSTIC IMPRESSION: Mild neurocognitive disorder, due to medical etiology - extent to be determined, likely in the mild range. Adjustment disorder with anxiety and depressed mood. RECOMMENDATIONS: The patient would benefit from a more thorough neuropsychological evaluation upon discharge. As indicated, initial assistance in the management of his medical condition will help insure safety. Consider evaluation for use of an antidepressant with anxiolytic features. Supportive counseling will also be helpful to assist in the management of anxiety. Thank you very much for allowing me to provide the consultation on this patient. <ELECTRONICALLY SIGNED> By: Ronn Ramirez, PhD 04/19/17 1508 1227 2242 Ronn Ramirez, PhD /nt
--- NOTE | ~2017-04-07 | HC ---
[facility] [place] [address] CONSULTATION Name: SILVANO JACKSON Room #: 504-1 ADM IN M.R.#: [id number] Admission: 04/07/17 Attend Phys: Rolan Hernandez MD Discharge: Date of : 43 Report #: [id number] THIS REPORT FOR: //name// CC: Rolan Zamarripa DATE OF SERVICE: 04/17/2017 ENDOCRINE PROGRESS NOTE Glucoses continue to stabilize. FBS slightly higher at 174 in spite of higher bedtime insulin. Highest glucose past day equals 177 at 12:00. Readjusting insulin q.i.d. prior to patient's scheduled dismissal. At that time, we will provide q.i.d. insulin doses using the patient's prior insulin rather than the current brands. <ELECTRONICALLY SIGNED> By: Rolan Becerra MD 04/18/17 1109 0945 1033 Rolan Becerra MD /nt
--- NOTE | ~2017-04-07 | HC ---
[facility] [place] [address] CONSULTATION Name: SILVANO JACKSON Room #: 504-1 ADM IN M.R.#: [id number] Admission: 04/07/17 Attend Phys: Rolan Hernandez MD Discharge: Date of : 43 Report #: [id number] THIS REPORT FOR: //name// CC: Rolan Zamarripa DATE OF SERVICE: 04/13/2017 Glucoses continue to decrease with cautious increases in insulin q.i.d. FBS lower at 153. Glucoses as low as 95 yesterday at 2200 hours without any hypoglycemia. Highest glucose past day equals 224 at 12:00. We will continue to readjust as needed. <ELECTRONICALLY SIGNED> By: Rolan Becerra MD 04/15/17 1122 1024 1112 Rolan Becerra MD /nt
--- NOTE | ~2017-04-07 | HC ---
[facility] [place] [address] CONSULTATION Name: SILVANO JACKSON Room #: 504-1 ADM IN M.R.#: [id number] Admission: 04/07/17 Attend Phys: Rolan Hernandez MD Discharge: Date of : 43 Report #: [id number] THIS REPORT FOR: //name// CC: Rolan Zamarripa DATE OF SERVICE: 04/15/2017 ENDOCRINE PROGRESS NOTE Glucose slowly increasing with attempts to reduce insulin q.i.d. FBS higher at 192 today. Highest glucose past day equals 170 at 1700. We will again increase insulin cautiously to bring glucoses back to a more appropriate level. <ELECTRONICALLY SIGNED> By: Rolan Becerra MD 04/17/17 0832 1353 2147 Rolan Becerra MD /nt
--- NOTE | ~2017-04-07 | HC ---
[facility] [place] [address] CONSULTATION Name: SILVANO JACKSON Room #: 504-1 ADM IN M.R.#: [id number] Admission: 04/07/17 Attend Phys: Rolan Hernandez MD Discharge: Date of : 43 Report #: [id number] THIS REPORT FOR: //name// CC: Rolan Zamarripa DATE OF SERVICE: 04/11/2017 ENDOCRINE PROGRESS NOTE Glucose continued to slowly increase in spite of increasing insulin dosage q.i.d. FBS higher at 289. Highest glucose past day equals 266 at 2200. Increasing hydration to avoid hyperglycemia due to dehydration and continuing linagliptin. We will continue to increase insulin cautiously as needed. <ELECTRONICALLY SIGNED> By: Rolan Becerra MD 04/12/17 1321 1142 1247 Rolan Becerra MD /nt
--- NOTE | ~2017-04-07 | HC ---
[facility] [place] [address] CONSULTATION Name: SILVANO JACKSON Room #: 504-1 ADM IN M.R.#: [id number] Admission: 04/07/17 Attend Phys: Rolan Hernandez MD Discharge: Date of : 43 Report #: [id number] THIS REPORT FOR: //name// CC: Rolan Zamarripa DATE OF SERVICE: 04/08/2017 Continue prior regimen with the patient now on rehabilitation unit. Readjusting insulin q.i.d. in an effort to stabilize blood sugar. The patient continuing on daily readjusted diet plus linagliptin. FBS lower at 169. The highest glucose was 215 at 2200. Glucoses significantly improved on only a tiny fraction of the insulin dosage. The patient was poorly controlled on at home prior to initial acute care admission. <ELECTRONICALLY SIGNED> By: Rolan Becerra MD 04/09/17 0828 1231 1829 Rolan Becerra MD /nt
--- NOTE | ~2017-04-07 | HC ---
[facility] [place] [address] CONSULTATION Name: SILVANO JACKSON LEAH Room #: 504-1 ADM IN M.R.#: [id number] Admission: 04/07/17 Attend Phys: Rolan Hernandez MD Discharge: Date of : 43 Report #: [id number] THIS REPORT FOR: //name// CC: Rolan Zamarripa DATE OF SERVICE: 04/12/2017 Glucose was lower with antibiotic therapy for UTI as well as very cautious mild increases in insulin q.i.d. FBS lower at 206. Highest glucose past day equals 312. Will continue to readjust insulin q.i.d. in an effort to slowly and cautiously lower glucose and improve control. <ELECTRONICALLY SIGNED> By: Rolan Becerra MD 04/13/17 1021 1324 5136 Rolan Becerra MD /nt
--- NOTE | ~2017-04-07 | H ---
[facility] [address] [place] [address] HISTORY AND PHYSICAL Name: SILVANO JACKSON Room #: 504-1 ADM IN M.R.#: [id number] Admission: 04/07/17 Attend Phys: Rolan Hernandez MD Discharge: Date of : 43 Report #: [id number] THIS REPORT FOR: //name// CC: Rolan Zamarripa DATE OF SERVICE: 04/08/2017 HISTORY AND PHYSICAL AND POSTADMISSION PHYSICIAN EVALUATION HISTORY OF PRESENT ILLNESS: The patient is a 71-year-old white male originally admitted to [facility] with acute mental status changes. He was noted to have insulin-dependent diabetes mellitus, was found on the drive way. Apparently had been there for up to 4 hours. He was not responding. He was noted to have a blood sugar greater than 900, was diagnosed with hyperosmolar coma. He was monitored in the intensive care unit. EEG showed moderately abnormal cerebral dysfunction. He was noted to have pseudohyponatremia. He was monitored regarding acute renal insufficiency. He was transferred out of the ICU. Neurology has been involved as well as Nephrology and Internal Medicine. He continues with cognitive issues with decreased memory and has functional mobility and higher level of gait and balance deficits. He has now been admitted for acute in-hospital inpatient rehabilitation stay. PAST MEDICAL HISTORY: Coronary artery bypass grafting, history of chronic kidney problems, stage 4 kidney disease, insulin-dependent diabetes mellitus, hypertension, diabetes -- noted to be insulin-dependent. MEDICATIONS: Please see the full medication listing. Each of these was individually reconciled. Upon admission includes, the vitamins per goals and supplements. ALLERGIES: No known drug allergies. SOCIAL HISTORY: [place] 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 He has been involved in assisting around the property, running a lawnmower, etc. The patient and his will keep in contact intermittently during the day. She has intermittently gone home to check in on him. She cannot get a hold of him sometimes when he leaves his phone and she will then check in on him. She does have some questions regarding a Life Alert. REVIEW OF SYSTEMS: No current complaints of chest pain, shortness of breath, abdominal discomfort. He does have premorbid distal lower extremity numbness with peripheral neuropathy. PHYSICAL EXAMINATION: GENERAL: He is a 71-year-old white male in no obvious distress. [address] [address] HISTORY AND PHYSICAL Name: SILVANO JACKSON Room #: 504-1 ADM IN M.R.#: [id number] Admission: 04/07/17 Attend Phys: Rolan Hernandez MD Discharge: Date of : 43 Report #: [id number] VITAL SIGNS: Temperature 37.1, pulse 70, respirations 20, blood pressure 180/78. GENERAL: The patient was seen earlier. He was sleepy but would arouse. He will follow basic 1 step commands. Tends to be forgetful. HEENT: Facies are symmetric. CHEST: Sounded clear to auscultation. CARDIOVASCULAR: Regular rate and rhythm. ABDOMEN: Obese, bowel sounds positive, nontender. GENITOURINARY AND RECTAL: Deferred. EXTREMITIES: He has functional range of motion of both upper extremities with strength grade 4+/5. DTRs are trace to 1. In his lower extremities, distal lower extremity numbness has been noted in a stocking distribution consistent with his peripheral neuropathy. Lower extremity strength is grade 4-/5. DTRs are trace to 1. He has been min assist with basic transfers and mod assist short distance ambulation. ASSESSMENT: A 71-year-old white male with the following problem: 1. Toxic metabolic encephalopathy. 2. Episode of nonketotic hyperosmolar coma. 3. Initial blood sugar greater than 900. 4. Acute renal insufficiency. 5. Pseudohyponatremia. 6. Electroencephalogram with moderately abnormal cerebral dysfunction. 7. Insulin-dependent diabetes mellitus. 8. Premorbid peripheral neuropathy with diabetes. 9. Hypertension. 10. Past surgical history of coronary artery bypass graft surgery. PLAN: The patient is admitted for acute in-hospital inpatient rehabilitation. From a postadmission physician evaluation perspective, there are no relevant changes since the preadmission screening. Please see the above review of prior and current medical and functional conditions and comorbidities. Please see the previous and current functional status. As far as risk of complications, he does have the multiple medical comorbidities as noted above. Initial plan of care involves the interdisciplinary acute inpatient rehabilitation program with the goal of maximizing the patient's functional independence, so that he can hopefully return back to his prior living situation. Goal will be to maximize his functional independence with mobility, ADLs, as well as cognition. Prognosis is reasonably good with estimated length of stay probably at least 10 days' pending progress. Potential barriers would include his multiple medical comorbidities and decreased functional status, decreased cognition. The patient meets diagnostic criteria for an acute in-hospital inpatient rehabilitation stay. He meets medical necessity criteria and we will have the multiple sr risk management consultant physicians continue to follow while he is on the acute rehab perez. He does have the tolerance for an acute in-hospital inpatient [facility] [address] [place] [address] HISTORY AND PHYSICAL Name: SILVANO JACKSON Room #: 504-1 ADM IN M.R.#: [id number] Admission: 04/07/17 Attend Phys: Rolan Hernandez MD Discharge: Date of : 43 Report #: [id number] rehabilitation stay and has appropriate discharge goals back to the home setting. <ELECTRONICALLY SIGNED> By: Rolan Hernandez MD 04/10/17 1608 0936 1120 Rolan Hernandez MD /nt
--- NOTE | ~2017-04-07 | HC ---
[facility] [place] [address] CONSULTATION Name: SILVANO JACKSON LEAH Room #: 504-1 ADM IN M.R.#: [id number] Admission: 04/07/17 Attend Phys: Rolan Hernandez MD Discharge: Date of : 43 Report #: [id number] THIS REPORT FOR: //name// CC: Rolan Sesayradha DATE OF SERVICE: 04/14/2017 Glucoses continue to improve, most likely with drop in insulin resistance due to treatment of UTI. FBS lower at 144. Highest glucose was 153 at 0700. We will continue attempts cautious insulin reduction as possible. <ELECTRONICALLY SIGNED> By: Rolan Becerra MD 04/15/17 1122 1717 0555 Rolan Becerra MD /nt
--- NOTE | ~2017-04-07 | PLAN ---
[facility] [place] [address] REHAB UNIT PLAN OF CARE Name: SILVANO JACKSON Room #: 504-1 ADM IN M.R.#: [id number] Admission: 04/07/17 Attend Phys: Rolan Hernandez MD Discharge: Date of : 41 Report #: [id number] THIS REPORT FOR: //name// CC: Rolan Zamarripa DATE OF SERVICE: 04/09/2017 HISTORY OF PRESENT ILLNESS: The patient is seen back today in followup. He is in no distress. Last recorded temperature is 98.6, pulse 65, respirations 20, blood pressure 186/78. He is noted to be voiding with no further catheterization per nursing. We have been doing time to voids. In physical therapy, transfers are contact guard. He did ambulate mod assist 250 feet. Working on balance issues. In occupational therapy, he is supervision for upper body dressing, min assist for lower body dressing. In speech therapy, he does have mild comprehensive deficits. He is on a regular diet with thin liquids. ASSESSMENT: 1. Toxic metabolic encephalopathy. 2. Episode of nonketotic hyperosmolar coma. 3. Initial blood sugar greater than 900. 4. Acute renal insufficiency. 5. Pseudohyponatremia. 6. EEG with moderately abnormal cerebral dysfunction. 7. Insulin-dependent diabetes mellitus. 8. Premorbid peripheral neuropathy with diabetes. 9. Hypertension. 10. Past surgical history of coronary artery bypass graft surgery. 11. Noted ataxia. PLAN: The overall plan of care is based on the preadmission screen, post-admission physician evaluation and information garnered from therapy assessments. 1. Estimated length of stay is probably 10 days to 2 weeks and likely longer as needed. 2. Medical prognosis is reasonably good. 3. Anticipated interventions includes the interdisciplinary acute inpatient rehabilitation program with PT, OT, speech therapy, rehab nursing assisting regarding medication management, skin care prophylaxis, bowel and bladder issues and nursing education. Case management is involved as well as the proposal consultant physicians. 4. Anticipated functional outcomes would be for the patient to become modified independent with transfers, mobility, ADLs, cognition, so that he can hopefully return back to the home setting. 5. Discharge destination would be back home with . 6. Expected therapy by discipline includes PT, OT and speech 1 hour per day [place] [id number] REHAB UNIT PLAN OF CARE Name: SILVANO JACKSON GLENALLEN Room #: 504-1 ADM IN [facility]#: [id number] Admission: 04/07/17 Attend Phys: Rolan Hernandez MD Discharge: Date of : 41 Report #: [id number] each five days a week throughout the duration of the acute in-hospital inpatient rehabilitation stay. <ELECTRONICALLY SIGNED> By: Rolan Hernandez MD 04/10/17 1608 0942 0254 Rolan Hernandez MD /nt
--- NOTE | ~2017-04-07 | HC ---
[facility] [address] CONSULTATION Name: SILVANO JACKSON Room #: 504-1 ADM IN M.R.#: [id number] Admission: 04/07/17 Attend Phys: Rolan Hernandez MD Discharge: Date of : 41 Report #: [id number] THIS REPORT FOR: //name// CC: Rolan Sesayradha DATE OF SERVICE: 04/10/2017 ENDOCRINE PROGRESS NOTE Continuing to increase insulin doses q.i.d. as hyperglycemia persists. FBS higher at 243 in spite of increased insulin q.i.d. Highest glucose past day equals 275 at 12:00. There is no obvious explanation for patient's slow worsening of hyperglycemia as he is not on any offending agents and dietary intake is appropriate and consistent. We will monitor and readjust therapy as needed. <ELECTRONICALLY SIGNED> By: Rolan Becerra MD 04/11/17 1140 1102 1334 Rolan Becerra MD /nt
--- NOTE | ~2017-04-07 | HC ---
[facility] [place] [address] CONSULTATION Name: SILVANO JACKSON Room #: 504-1 ADM IN M.R.#: [id number] Admission: 04/07/17 Attend Phys: Rolan Hernandez MD Discharge: Date of : 41 Report #: [id number] THIS REPORT FOR: //name// CC: Rolan Zamarripa DATE OF SERVICE: 04/18/2017 ENDOCRINE PROGRESS NOTE Glucose is still mildly elevated, necessitating slow cautious increase in insulin dosage. FBS mildly elevated at 204. Highest glucose past day equals 205 at 12:00. The patient is scheduled for dismissal today. We will provide him with q.i.d. insulin doses and readjust p.r.n. based on home glucose monitoring and glucose values on an outpatient basis. Discharge planning in progress. By: 1111 1121 Rolan Becerra MD /nt
--- NOTE | ~2017-04-07 | HC ---
[facility] [place] [address] CONSULTATION Name: SILVANO JACKSON LEAH Room #: 504-1 ADM IN M.R.#: [id number] Admission: 04/07/17 Attend Phys: Rolan Hernandez MD Discharge: Date of : 41 Report #: [id number] THIS REPORT FOR: //name// CC: Rolan Zamarirpa DATE OF SERVICE: 04/16/2017 ENDOCRINE PROGRESS NOTE: Glucoses lower with increasing insulin. FBS lower at 163. Highest glucose past day equals 237 at 12:00. We will continue to readjust insulin to slowly tighten control in a very cautious fashion. <ELECTRONICALLY SIGNED> By: Rolan Becerra MD 04/18/17 1109 2300 0113 Rolan Becerra MD /nt
--- NOTE | ~2017-04-07 | HC ---
[facility] [place] [address] CONSULTATION Name: SILVANO JACKSON Room #: 504-1 ADM IN M.R.#: [id number] Admission: 04/07/17 Attend Phys: Rolan Hernandez MD Discharge: Date of : 41 Report #: [id number] THIS REPORT FOR: //name// [facility] DATE OF SERVICE: 04/09/2017 Glucose is slightly higher during the day, necessitating increases in prandial insulin as basal insulin level seems appropriate. FBS higher at 236. Highest glucose past day equals 282 at 2200. Insulin dosage still significantly lower than preadmission levels, but will need some mild increases delivered cautiously to avoid any hypoglycemia. <ELECTRONICALLY SIGNED> By: Rolan Becerra MD 04/09/17 1323 0830 0842 Rolan Becerra MD /nt
[~2017-04-07 13:29] MED LIST changes: +ENOXAPARIN40 MG/0.1 SUBQ; +FUROSEMIDE 20 M20 M1 PO; +LISINOPRIL10 MG PO; +TOUJEO SOL300 UNIT/1 SUBQ; +VENTOLIN HFA 1818 GM INH; +ZOLOFT100 MG PO
[2017-04-07 14:20] VITALS: BP 175/85
[2017-04-07 19:54] VITALS: BP 180/78
[2017-04-08 06:01] LABS: HEMATOCRIT 31.2 % (42.0-52.0); HEMOGLOBIN 10.5 gm/dL (14.0-18.0); MCHC 33.6 g/dL (28.0-37.0); MCV 83.4 fL (80.0-100.0); RBC 3.74 mil/uL (4.50-6.00); RDW 13.7 % (10.5-14.5); WBC 6.8 thou/uL (4.0-11.0)
[2017-04-08 06:18] LABS: ALBUMIN 2.5 g/dL (3.4-5.0); CALCIUM 8.4 mg/dL (8.5-10.1); PHOSPHORUS 3.1 mg/dL (2.5-4.9); POTASSIUM 3.9 mmol/L (3.5-5.1)
[2017-04-08 06:39] LABS: URINE BILIRUBIN NEGATIVE (Negative); URINE BLOOD 1+ (Negative); URINE COLOR YELLOW; URINE GLUCOSE-RANDOM* TRACE (Negative); URINE KETONES NEGATIVE (Negative); URINE LEUKOCYTES-REFLEX NEGATIVE (Negative); URINE PROTEIN (DIPSTICK) 2+ (Negative); URINE SPECIFIC GRAVITY <= 1.005 (1.003-1.035); URINE UROBILINOGEN 0.2 E.U./dl (0.2-1.0)
[2017-04-08 07:19] LABS: SQUAMOUS 0-3 Few /LPF (0-3)
[2017-04-08 07:20] LABS: CASTS None Seen /LPF (None Seen)
[2017-04-08 07:21] LABS: CRYSTALS None Seen /LPF (None Seen); URINE RBC 0-2 Rare /HPF (0-2); URINE WBC-REFLEX 0-5 Rare /HPF (0-5)
[2017-04-08 08:30] VITALS: BP 169/66
[2017-04-08 20:30] VITALS: BP 186/78
[2017-04-09 06:20] LABS: ALBUMIN 2.4 g/dL (3.4-5.0); CALCIUM 8.4 mg/dL (8.5-10.1); CREATININE 2.4 mg/dL (0.7-1.3); PHOSPHORUS 4.1 mg/dL (2.5-4.9); POTASSIUM 4.1 mmol/L (3.5-5.1)
[2017-04-09 08:00] VITALS: BP 142/67
[2017-04-09 20:06] VITALS: BP 162/57
[2017-04-10 06:36] LABS: ABSOLUTE NEUTROPHILS 4.8 thou/uL (1.4-8.2); BASOPHILS 0.6 % (0.0-2.0); EOSINOPHILS 1.5 % (0.0-3.0); HEMATOCRIT 25.2 % (42.0-52.0); HEMOGLOBIN 8.6 gm/dL (14.0-18.0); LYMPHOCYTES 21.5 % (24.0-44.0); MCH 28.7 pg (26.0-34.0); MCHC 34.2 g/dL (28.0-37.0); MCV 83.9 fL (80.0-100.0); MONOCYTES 10.5 % (1.0-8.0); PLATELET COUNT 86 thou/uL (150-400); POLYS 65.9 % (36.0-66.0); RDW 13.6 % (10.5-14.5); WBC 7.2 thou/uL (4.0-11.0)
[2017-04-10 06:51] LABS: ALBUMIN 2.2 g/dL (3.4-5.0); CALCIUM 8.2 mg/dL (8.5-10.1); CREATININE 2.6 mg/dL (0.7-1.3); PHOSPHORUS 4.3 mg/dL (2.5-4.9); POTASSIUM 4.4 mmol/L (3.5-5.1)
[2017-04-10 07:09] LABS: MANUAL DIFF NO
[2017-04-10 20:05] VITALS: BP 137/48
[2017-04-11 06:02] LABS: ALBUMIN 2.2 g/dL (3.4-5.0); CALCIUM 8.2 mg/dL (8.5-10.1); CREATININE 2.7 mg/dL (0.7-1.3); PHOSPHORUS 4.4 mg/dL (2.5-4.9); POTASSIUM 4.5 mmol/L (3.5-5.1)
[2017-04-11 07:08] VITALS: BP 149/57
[2017-04-11 10:14] LABS: URINE BILIRUBIN NEGATIVE (Negative); URINE BLOOD 3+ (Negative); URINE COLOR YELLOW; URINE GLUCOSE-RANDOM* 3+ (Negative); URINE KETONES NEGATIVE (Negative); URINE NITRITE NEGATIVE (Negative); URINE PROTEIN (DIPSTICK) 2+ (Negative); URINE SPECIFIC GRAVITY 1.015 (1.003-1.035); URINE UROBILINOGEN 0.2 E.U./dl (0.2-1.0)
[2017-04-11 10:35] LABS: SQUAMOUS 0-3 Few /LPF (0-3)
[2017-04-11 10:36] LABS: AMORPHOUS URATES Few /LPF (None Seen); BACTERIA 1-9 Few /HPF (None Seen); HYALINE CASTS 0-3 Few /LPF (None Seen); URINE RBC 3-10 Few /HPF (0-2); URINE WBC 6-15 Few /HPF (0-5)
[2017-04-11 10:42] LABS: URINE CREATININE-RANDOM* 43.2 mg/dL
[2017-04-11 19:35] VITALS: BP 155/54
[2017-04-12 06:21] LABS: ALBUMIN 2.2 g/dL (3.4-5.0); CALCIUM 8.2 mg/dL (8.5-10.1); CREATININE 2.5 mg/dL (0.7-1.3); POTASSIUM 4.2 mmol/L (3.5-5.1)
[2017-04-12 08:00] VITALS: BP 165/55
[2017-04-12 21:39] VITALS: BP 162/57
[2017-04-13 05:47] LABS: ALBUMIN 2.3 g/dL (3.4-5.0); CALCIUM 8.3 mg/dL (8.5-10.1); CREATININE 2.4 mg/dL (0.7-1.3); PHOSPHORUS 3.9 mg/dL (2.5-4.9); POTASSIUM 4.2 mmol/L (3.5-5.1)
[2017-04-13 08:00] VITALS: BP 141/51
[2017-04-13 19:50] VITALS: BP 146/53
[2017-04-14 09:00] VITALS: BP 123/50
[2017-04-14 20:15] VITALS: BP 148/62
[2017-04-15 07:12] LABS: BASOPHILS 0.7 % (0.0-2.0); EOSINOPHILS 2.2 % (0.0-3.0); HEMATOCRIT 24.8 % (42.0-52.0); HEMOGLOBIN 8.5 gm/dL (14.0-18.0); LYMPHOCYTES 20.8 % (24.0-44.0); MCH 28.5 pg (26.0-34.0); MCHC 34.1 g/dL (28.0-37.0); MCV 83.6 fL (80.0-100.0); MONOCYTES 6.6 % (1.0-8.0); PLATELET COUNT 90 thou/uL (150-400); POLYS 69.7 % (36.0-66.0); RBC 2.97 mil/uL (4.50-6.00); RDW 13.6 % (10.5-14.5); WBC 5.8 thou/uL (4.0-11.0)
[2017-04-15 07:14] LABS: MANUAL DIFF NO
[2017-04-15 07:21] LABS: ALBUMIN 2.4 g/dL (3.4-5.0); CALCIUM 8.4 mg/dL (8.5-10.1); CREATININE 2.5 mg/dL (0.7-1.3); PHOSPHORUS 4.3 mg/dL (2.5-4.9); POTASSIUM 3.8 mmol/L (3.5-5.1)
[2017-04-15 09:05] VITALS: BP 137/66
[2017-04-15 19:48] VITALS: BP 142/93
[2017-04-16 06:01] LABS: ABSOLUTE NEUTROPHILS 4.3 thou/uL (1.4-8.2); BASOPHILS 0.6 % (0.0-2.0); HEMATOCRIT 25.1 % (42.0-52.0); HEMOGLOBIN 8.4 gm/dL (14.0-18.0); LYMPHOCYTES 20.2 % (24.0-44.0); MCH 28.2 pg (26.0-34.0); MCHC 33.6 g/dL (28.0-37.0); MCV 83.8 fL (80.0-100.0); PLATELET COUNT 96 thou/uL (150-400); POLYS 71.2 % (36.0-66.0); RDW 13.9 % (10.5-14.5)
[2017-04-16 06:03] LABS: MANUAL DIFF NO
[2017-04-16 06:31] LABS: ALBUMIN 2.4 g/dL (3.4-5.0); CALCIUM 8.1 mg/dL (8.5-10.1); CREATININE 2.5 mg/dL (0.7-1.3); PHOSPHORUS 4.2 mg/dL (2.5-4.9); TOTAL BILIRUBIN 0.2 mg/dL (<0.1-1.0)
[2017-04-16 08:30] VITALS: BP 153/53
[2017-04-16 19:44] VITALS: BP 146/58
[2017-04-17 08:00] VITALS: BP 119/46
[2017-04-17] MEDS ORDERED: FOLIC ACID 1 MG1 MG PO (09:50)
[2017-04-17] MEDS ORDERED: NYAMYC15 GM TOP (09:50)
[2017-04-17] MEDS ORDERED: FLOMAX0.4 MG PO (09:50)
[2017-04-17] MEDS ORDERED: COLACE 100 MG100 MG PO (09:50)
[2017-04-17] MEDS ORDERED: VITAMIN B-1100 M2 PO (09:50)
[2017-04-17] MEDS ORDERED: VITAMIN D5000 UNIT PO (09:50)
[2017-04-17] MEDS ORDERED: TRADJENTA5 MG PO (09:50)
[2017-04-17] MEDS ORDERED: PANTOPRAZOLE SO40 M1 PO (09:50)
[2017-04-17 20:39] VITALS: BP 145/67
[2017-04-18 06:39] LABS: ALBUMIN 2.5 g/dL (3.4-5.0); CALCIUM 8.3 mg/dL (8.5-10.1); CREATININE 2.2 mg/dL (0.7-1.3); PHOSPHORUS 3.9 mg/dL (2.5-4.9); POTASSIUM 4.4 mmol/L (3.5-5.1)
[2017-04-18 08:00] VITALS: BP 153/64
[2017-04-18 08:46] VITALS: BP 153/64
[2017-04-18 08:54] VITALS: BP 153/64
[2017-04-18 08:58] VITALS: BP 153/64
[2017-04-18 09:04] VITALS: BP 153/64
[2017-04-18 12:24] VITALS: BP 153/64
== END 2017-04-18 15:00 | disposition home health service (06) | DRG 91 ==
PROVIDERS: Family Medicine; Hospitalist; Internal Medicine Nephrology; Nurse Practitioner; Nurse Practitioner Acute Care; Nurse Practitioner Family; Physical Medicine & Rehabilitation
DX: G92 Toxic encephalopathy (principal); E11.00 Type 2 diabetes mellitus with hyperosmolarity without nonketotic hyperglycemic-hyperosmolar coma (NKHHC); N18.4 Chronic kidney disease, stage 4 (severe); N17.9 Acute kidney failure, unspecified; N39.0 Urinary tract infection, site not specified; E87.1 Hypo-osmolality and hyponatremia; E46 Unspecified protein-calorie malnutrition; R27.0 Ataxia, unspecified; E11.42 Type 2 diabetes mellitus with diabetic polyneuropathy; G31.84 Mild cognitive impairment of uncertain or unknown etiology; F43.23 Adjustment disorder with mixed anxiety and depressed mood; E11.22 Type 2 diabetes mellitus with diabetic chronic kidney disease; I12.9 Hypertensive chronic kidney disease with stage 1 through stage 4 chronic kidney disease, or unspecified chronic kidney disease; R33.9 Retention of urine, unspecified; E55.9 Vitamin D deficiency, unspecified; E87.6 Hypokalemia; D64.9 Anemia, unspecified; D69.6 Thrombocytopenia, unspecified; R53.81 Other malaise; Z79.4 Long term (current) use of insulin; Z95.1 Presence of aortocoronary bypass graft; Z68.31 Body mass index [BMI] 31.0-31.9, adult
CPT/HCPCS: 10092

== ENCOUNTER 2017-10-19 06:51 | Emergency (ER) | payer OTHER, BC ==
[~2017-10-19] VITALS: Ht 180.3 cm; Wt 97.5 kg
[~2017-10-19 06:51] MED LIST changes: +COLACE 100 MG100 MG PO; +FLOMAX0.4 MG PO; +FOLIC ACID 1 MG1 MG PO; +NYAMYC15 GM TOP; +PANTOPRAZOLE SO40 M1 PO; +TRADJENTA5 MG PO; +VITAMIN B-1100 M2 PO; +VITAMIN D5000 UNIT PO
== END 2017-10-19 08:59 | disposition home or self-care (01) ==
LOC: ER 06:51
DX: T83.018A Breakdown (mechanical) of other urinary catheter, initial encounter (principal); E11.22 Type 2 diabetes mellitus with diabetic chronic kidney disease; N18.4 Chronic kidney disease, stage 4 (severe); I12.9 Hypertensive chronic kidney disease with stage 1 through stage 4 chronic kidney disease, or unspecified chronic kidney disease; E78.5 Hyperlipidemia, unspecified; Z90.49 Acquired absence of other specified parts of digestive tract; Y84.8 Other medical procedures as the cause of abnormal reaction of the patient, or of later complication, without mention of misadventure at the time of the procedure; Y92.89 Other specified places as the place of occurrence of the external cause

== ENCOUNTER → 2018-04-24 | Outpatient (CLI) | payer OTHER, BC ==
[~2018-04-24] MED LIST changes: +GABAPENTIN 100100 MG PO; +LIPITOR10 MG PO; +PLAVIX 75 MG TA75 M1 PO; +TOUJEO MAX300 UNIT/1 SUBQ; +TRADJENTA5 MG
== END ==
LOC: ULTRA 14:29
DX: M79.89 Other specified soft tissue disorders (principal); M79.631 Pain in right forearm; E11.22 Type 2 diabetes mellitus with diabetic chronic kidney disease; I12.9 Hypertensive chronic kidney disease with stage 1 through stage 4 chronic kidney disease, or unspecified chronic kidney disease; N18.4 Chronic kidney disease, stage 4 (severe); E78.5 Hyperlipidemia, unspecified; Z79.4 Long term (current) use of insulin

== ENCOUNTER 2018-05-20 16:43 | Inpatient (IN) | payer OTHER, BC ==
[~2018-05-20] VITALS: Ht 177.8 cm; Wt 108.9 kg
--- NOTE | ~2018-05-20 | EKG ---
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
--- NOTE | ~2018-05-20 | HC ---
[facility] [place] [address] CONSULTATION Name: SILVANO JACKSON Room #: 357- ADM IN M.R.#: [id number] Admission: 05/20/18 Attend Phys: Diomedes Cardenas Discharge: Date of : 43 Report #: [id number] THIS REPORT FOR: //name// CC: Elsa Muniz DATE OF SERVICE: 05/21/2018 ATTENDING PHYSICIAN: Dr. Carvalho. REASON FOR CONSULTATION: Chronic kidney disease stage 5. HISTORY OF PRESENT ILLNESS: The patient is well known to our service, followed in our office, recently seen with a creatinine of 4.5. Earlier this year, he had a CVA characterized by right arm numbness, tingling and mild right hemiparesis, most of which resolved. He has had a fistula placed in his right arm and this was revised a week and a half ago. Since that time, he has had increased swelling in his right arm. He has also had increased swelling in his lower extremities and increasing exertional dyspnea. He is admitted for these problems. PAST MEDICAL HISTORY: Longstanding diabetes, very poorly controlled; history of previous coronary bypass; pancreatitis; previous history of alcohol abuse. He has also had appendectomy and a remote facial mastoiditis, which was thought to be a fungal infection. SOCIAL HISTORY: Former heavy smoker and drinker, not anymore. REVIEW OF SYSTEMS: GENERAL: He has been feeling a bit poorly lately. EYES: Vision is reasonably stable. ENT: Hearing okay, swallows okay. No mouth ulcers. ENDOCRINE: Positive for the diabetes. RESPIRATORY: Little bit short of breath with exertion and orthopnea. CARDIAC: No chest pain or angina. He has had a lot of swelling in his legs. GASTROINTESTINAL: No nausea, vomiting, diarrhea or bloody stools. GENITOURINARY: Good urinary stream. No dysuria or hematuria. No renal stones. NEUROLOGIC: He has got numbness and tingling on the right side, particularly the right side of his face. MUSCULOSKELETAL: Gets around okay, but his balance is somewhat poor. HOME MEDICATIONS: Listed as following: Aspirin 325 mg daily, Lipitor 40 mg daily, Plavix 75 mg daily, gabapentin 100 mg t.i.d., insulin, Tradjenta 5 mg daily, lisinopril 10 mg daily, Toprol-XL 25 mg daily, torsemide 20 mg b.i.d., Zoloft 100 mg daily. [facility] [address] [place] [address] CONSULTATION Name: SILVANO JACKSON Room #: 357-P [facility] IN [facility].#: [id number] Admission: 05/20/18 Attend Phys: Diomedes Cardenas Discharge: Date of : 43 Report #: [id number] PHYSICAL EXAMINATION: GENERAL: This is a reasonably comfortable appearing, slightly dysarthric gentleman, in no acute distress. SKIN: Unremarkable, little bit swollen. SKELETAL: Well developed, well nourished. HEENT: Extraocular movements are full. No scleral icterus. Hearing and vision intact. Mucous membranes moist. NECK: Supple, no carotid bruits. CHEST: Slightly diminished breath sounds at the bases. HEART: Regular. ABDOMEN: Soft. EXTREMITIES: Showed 2-3+ peripheral edema. LABORATORY DATA: Hemoglobin was 9, only 7.9, with MCV of 85.8, and platelets of only 86,000. Sodium 142, potassium 5.2, chloride 113, bicarbonate 17, creatinine 3.9, BUN 60. ASSESSMENT AND PLAN: 1. Chronic kidney disease stage 4/5. He has advanced chronic kidney disease. His creatinine is down a little bit, but I suspect that is due to dilution from the excessive extracellular fluid on board and with appropriate diuresis, his creatinine probably will go up a bit. We will change him to Lasix 80 mg b.i.d. Because of the elevated potassium, we will no add spironolactone. We may need to add metolazone or chlorthalidone as adjunctive depending on the response to the IV Lasix. We will also put him on a salt restriction. 2. Extracellular fluid volume excess. Diuresis as above. 3. Diabetes mellitus with peripheral neuropathy and diabetic nephropathy. 4. History of cerebrovascular accident with right-sided hemiparesis. 5. Anemia. I will check iron studies. He may need to begin erythropoietic stimulating agents. By: 1013 0207 Dereje Salgado MD /nt
[2018-05-20 17:05] VITALS: BP 168/48
[2018-05-20 20:19] LABS: ABSOLUTE NEUTROPHILS 5.2 thou/uL (1.4-8.2); BASOPHILS 0.5 % (0.0-2.0); EOSINOPHILS 2.3 % (0.0-3.0); HEMATOCRIT 27.2 % (42.0-52.0); LYMPHOCYTES 28.3 % (24.0-44.0); MCH 28.7 pg (26.0-34.0); MCHC 33.2 g/dL (28.0-37.0); MCV 86.6 fL (80.0-100.0); MONOCYTES 5.4 % (1.0-8.0); POLYS 63.5 % (36.0-66.0); RBC 3.14 mil/uL (4.50-6.00); RDW 15.2 % (10.5-14.5); WBC 8.2 thou/uL (4.0-11.0)
[2018-05-20 20:30] LABS: CALCIUM 8.4 mg/dL (8.5-10.1); CREATININE 4.1 mg/dL (0.7-1.3); POTASSIUM 5.2 mmol/L (3.5-5.1)
[2018-05-20 20:33] LABS: ALBUMIN 3.2 g/dL (3.4-5.0); TOTAL BILIRUBIN 0.3 mg/dL (<0.1-1.0); TOTAL PROTEIN 7.7 g/dL (6.4-8.2)
[2018-05-20 20:42] LABS: APTT 30.3 Seconds (24.5-32.8); D-DIMER 2.5 ug/mLFEU (0.19-0.50); PROTIME 10.7 Seconds (9.3-11.4)
[2018-05-20] MEDS ORDERED: NOVOLOG100 UNIT/1 SUBQ (20:42)
[2018-05-20] MEDS ORDERED: DEMADEX20 MG PO (20:42)
[2018-05-20 20:45] LABS: PLATELET COUNT 91 thou/uL (150-400)
[2018-05-20 22:40] VITALS: BP 178/51
[2018-05-21 04:00] VITALS: BP 143/65
[2018-05-21 05:48] LABS: HEMATOCRIT 24.1 % (42.0-52.0); HEMOGLOBIN 7.9 gm/dL (14.0-18.0); MCH 28.1 pg (26.0-34.0); MCHC 32.7 g/dL (28.0-37.0); MCV 85.8 fL (80.0-100.0); RBC 2.81 mil/uL (4.50-6.00); RDW 15.3 % (10.5-14.5); WBC 6.7 thou/uL (4.0-11.0)
[2018-05-21 06:01] LABS: CALCIUM 8.4 mg/dL (8.5-10.1); CREATININE 3.9 mg/dL (0.7-1.3); POTASSIUM 5.2 mmol/L (3.5-5.1)
[2018-05-21 08:00] VITALS: BP 148/50
[2018-05-21 10:43] LABS: % SATURATION 12 % (20-39); IRON 35 ug/dL (65-175); TIBC 284 ug/dL (250-450)
[2018-05-21 11:03] VITALS: BP 165/54
[2018-05-21 15:39] VITALS: BP 147/51
[2018-05-21 19:54] VITALS: BP 148/52
[2018-05-22 04:25] VITALS: BP 175/65
[2018-05-22 07:07] LABS: ALBUMIN 3.1 g/dL (3.4-5.0); CALCIUM 8.7 mg/dL (8.5-10.1); CREATININE 4.3 mg/dL (0.7-1.3); PHOSPHORUS 5.6 mg/dL (2.5-4.9); POTASSIUM 5.3 mmol/L (3.5-5.1)
[2018-05-22 07:44] VITALS: BP 160/46
[2018-05-22] MEDS ORDERED: HEPARIN SO5000 UNIT/ SUBQ (14:05)
[2018-05-22] MEDS ORDERED: IPRAT-ALBUT 0.5-3 ML INH (14:05)
[2018-05-22] MEDS ORDERED: FUROSEMIDE20 MG/2 ML IV PUSH (14:05)
== END 2018-05-22 14:59 | disposition home health service (06) | DRG 314 ==
LOC: ER 16:43 → 3W 22:05 → EROBS 22:05 → 3W 22:44
PROVIDERS: Emergency Medicine; Internal Medicine Nephrology; Nurse Practitioner Family
DX: T82.590A Other mechanical complication of surgically created arteriovenous fistula, initial encounter (principal); N18.6 End stage renal disease; I13.2 Hypertensive heart and chronic kidney disease with heart failure and with stage 5 chronic kidney disease, or end stage renal disease; I69.351 Hemiplegia and hemiparesis following cerebral infarction affecting right dominant side; I42.9 Cardiomyopathy, unspecified; I50.9 Heart failure, unspecified; E11.22 Type 2 diabetes mellitus with diabetic chronic kidney disease; I25.10 Atherosclerotic heart disease of native coronary artery without angina pectoris; Y84.1 Kidney dialysis as the cause of abnormal reaction of the patient, or of later complication, without mention of misadventure at the time of the procedure; E11.42 Type 2 diabetes mellitus with diabetic polyneuropathy; E87.70 Fluid overload, unspecified; D64.9 Anemia, unspecified; F32.9 Major depressive disorder, single episode, unspecified; G25.0 Essential tremor; Z79.4 Long term (current) use of insulin; Z90.49 Acquired absence of other specified parts of digestive tract; Z95.1 Presence of aortocoronary bypass graft; Y92.89 Other specified places as the place of occurrence of the external cause; Z87.891 Personal history of nicotine dependence; I25.2 Old myocardial infarction; Z95.5 Presence of coronary angioplasty implant and graft; Z79.899 Other long term (current) drug therapy; Z79.82 Long term (current) use of aspirin
CPT/HCPCS: 10879

== ENCOUNTER 2018-05-22 14:17 | Inpatient (IN) | payer OTHER, BC ==
[~2018-05-22] VITALS: Ht 177.8 cm; Wt 105.0 kg
--- NOTE | ~2018-05-22 | PLAN ---
[facility] [place] [address] REHAB UNIT PLAN OF CARE Name: SILVANO JACKSON Room #: 514-P ADM IN M.R.#: [id number] Admission: 05/22/18 Attend Phys: Rolan Hernandez MD Discharge: Date of : 43 Report #: [id number] THIS REPORT FOR: //name// CC: Rolan Zamarripa DATE OF SERVICE: 05/25/2018 PROGRESS NOTE/OVERALL PLAN OF CARE SUBJECTIVE: The patient is seen back today in followup. He is in no distress. Last recorded temperature is 97.8, pulse 78, respirations 18, blood pressure 145/57. Transfers are min assist. He is ambulating min assist 350 feet without a device. He has the continued weakness of that right upper extremity, although he notes he is able to extend his fingers a little bit better to try to make a protector plate attacher. Surgical incisional areas from the fistula appeared to be healing well. Upper body dressing is standby assist with lower body dressing, min assist. ASSESSMENT: 1. Cerebrovascular accident with right hemiparesis. 2. Right upper extremity edema, improving. 3. Essential tremor upper extremities. 4. Chronic kidney disease stage 4-5. 5. Coronary artery disease with history of NC, status post coronary artery bypass grafting. 6. Insulin-dependent diabetes mellitus. 7. Premorbid diabetic neuropathy. 8. Hyperlipidemia. 9. Hypertension. 10. Depression. PLAN: The overall plan of care is based on the preadmission screen, post-admission physician evaluation and information garnered from therapy assessments. 1. Estimated length of stay is probably at least 7-14 days and likely longer if needed. 2. Medical prognosis is reasonably good. 3. Anticipated interventions includes the interdisciplinary acute inpatient rehabilitation program with PT, OT involved rehab nursing assisting regarding medication management, skin care prophylaxis, bowel and bladder issues and nursing education. Case management is involved as well as the consulting physicians and the interdisciplinary acute rehabilitation team. 4. Anticipated functional outcomes would be for the patient to become modified independent with basic gait, mobility and ADLs at least with the front wheeled walker. 5. Discharge destination would be back home with his . [facility] [address] [place] [address] REHAB UNIT PLAN OF CARE Name: SILVANO JACKSON LEAH Room #: 514-P [facility] IN .R.#: [id number] Admission: 05/22/18 Attend Phys: Rolan Hernandez MD Discharge: Date of : 43 Report #: [id number] 6. Expected therapy by discipline includes PT and OT 1-1/2 hours per day each five days a week throughout the duration of the acute inpatient rehabilitation stay. ADDENDUM: I have put an order for electrical stimulation, right upper extremity for work on the extensor forearm/extensor finger weakness. He denied any history of cardiac pacemaker. By: 0826 [facility] Rolan Hernandez MD /DENILSON
--- NOTE | ~2018-05-22 | H ---
[facility] [place] [address] HISTORY AND PHYSICAL Name: SILVANO JACKSON Room #: 514-P [facility] IN M.R.#: [id number] Admission: 05/22/18 Attend Phys: Rolan Hernandez MD Discharge: Date of : 43 Report #: [id number] THIS REPORT FOR: //name// CC: Rolan Zamarripa DATE OF SERVICE: 05/22/2018 HISTORY AND PHYSICAL AND POST-ADMISSION PHYSICIAN EVAUATION HISTORY OF PRESENT ILLNESS: The patient is a 72-year-old white male with a prior left thalamic cerebrovascular accident with right-sided weakness, 03/26/2018. He did not receive any inpatient rehabilitation, was having more and more difficulty at home and has had to rely on the front wheeled walker. He also was having worsening right arm edema and has a history of stage 4 to stage 5 chronic kidney disease. He had a fistula revision approximately 10 days ago and was being treated with IV diuretics. He also was having issues with tremor in bilateral hands, left greater than right for approximately a year. He has had worsening problems with functional mobility and the right-sided weakness from the CVA along with functional ADL deficits and cognitive concerns. He has been admitted now for acute in-hospital inpatient rehabilitation. PAST MEDICAL HISTORY: Includes chronic kidney disease stage 5, insulin-dependent diabetes mellitus, coronary artery disease, hypertension, end-stage renal disease, CABG x 5, UT x 3, right knee repair. ALLERGIES: No known drug allergies. HABITS: Quit greater than 1 year ago. ETOH use, occasional. SOCIAL HISTORY: Lives in a house with his , one stair entry, no stairs inside. There is a basement, but did not need to utilize it, was premorbidly independent with ADLs, shared his IADLs with his , does not drive anymore. REVIEW OF SYSTEMS: Did not offer any current complaints of chest pain, shortness of breath or abdominal discomfort. No complaints of voiding difficulty. Notes his right arm swelling is improved. He does have numbness of the right upper extremity and has a neuropathy with neuropathic pain, bilateral lower extremities as well as distal left upper extremity. PHYSICAL EXAMINATION: GENERAL: The patient is a 72-year-old white male in no obvious distress. VITAL SIGNS: Last recorded temperature is 98.4, pulse 70, respirations 18, blood pressure 139/47. He is alert. The patient was seen earlier. HEENT: Appeared to be benign. CHEST: Sounded clear to auscultation. [facility] [address] [place] [address] HISTORY AND PHYSICAL Name: SILVANO JACKSON Room #: 514-P [facility] IN [facility]#: [id number] Admission: 05/22/18 Attend Phys: Rolan Hernandez MD Discharge: Date of : 43 Report #: [id number] CARDIOVASCULAR: Regular rate and rhythm. ABDOMEN: Bowel sounds positive, nontender. GENITOURINARY AND RECTAL: Deferred. EXTREMITIES: Functional range of motion of both upper and lower extremities with decreased strength on the right. He is unable to extend his right fingers. He has edema of the fingers and the hand. He has decreased sensation of that right upper extremity. Left upper extremity is better, strength is a grade 4+. In his lower extremities, he has decreased distal sensation in a stocking distribution. No foot drop. Strength of the right lower extremity is probably a grade 3+ to 4-/5, left lower extremity is a grade 4- to 4/5. There is a note of some essential tremor. He has been min assist for sit to stand and min assist for short distance walker ambulation. ASSESSMENT: 1. Cerebrovascular accident with right hemiparesis. 2. Right upper extremity edema, which is improving. 3. Essential tremor, upper extremities. 4. Chronic kidney disease stage 4-5. 5. Coronary artery disease with history of myocardial infarction past coronary artery bypass graft. 6. Insulin-dependent diabetes mellitus. 7. Premorbid diabetic neuropathy. 8. Hyperlipidemia. 9. Hypertension. 10. Depression. PLAN: The patient is admitted for acute in-hospital inpatient rehabilitation. From a postadmission physician evaluation perspective, there are no relevant changes since the preadmission screening. Please see the above review of prior and current medical and functional conditions and comorbidities. Please see the patient's previous and current functional status. As far as risk of complications, the patient has multiple medical comorbidities as noted above. Initial plan of care involves the interdisciplinary acute inpatient rehabilitation program with the goal of maximizing the patient's functional independence, so that he can hopefully return back to his prior living situation. Measurable functional goals would be for the patient to become modified independent with transfers, mobility, ADLs that he can hopefully return back to his prior living situation. Prognosis is reasonably good with estimated length of stay probably 7-10 days and likely longer if needed. Potential barriers would include the patient's multiple medical comorbidities and decreased functional status. The patient meets diagnostic criteria for an acute in-hospital inpatient rehabilitation stay. Meets medical necessity criteria and we will have the child welfare consultant physicians continue to follow. He does have the tolerance for therapies and has appropriate discharge goals back to the home setting. [address] [address] HISTORY AND PHYSICAL Name: SILVANO JACKSON Room #: 514-P ADM IN M.R.#: [id number] Admission: 05/22/18 Attend Phys: Rolan Hernandez MD Discharge: Date of : 43 Report #: [id number] Addendum will be adding electrical stimulation for that right upper extremity weakness. He is especially weak in extension of his right hand. He denies any history of cardiac pacemaker. We will have them stay away from the surgical site obviously from where the fistula was placed. By: 1201 1248 Rolan Hernandez MD /DENILSON
--- NOTE | ~2018-05-22 | HC ---
[facility] [place] [address] CONSULTATION Name: SILVANO JACKSON Room #: 504-1 [facility] IN M.R.#: [id number] Admission: 05/22/18 Attend Phys: Rolan Hernandez MD Discharge: 06/01/18 Date of : 43 Report #: [id number] THIS REPORT FOR: //name// CC: Rolan Hernandez [facility] [place] DATE OF SERVICE: 05/24/2018 NEUROBEHAVIORAL STATUS EXAM: ATTENDING PHYSICIAN: Rolan Hernandez MD. JANITOR CARETAKER: Ronn Ramirez, PhD. CLINICAL PRESENTATION: The patient is a 72-year-old male admitted to the rehabilitation unit at [facility] for comprehensive inpatient rehabilitation program to improve functional mobility, activities of daily living and self-care and mental status secondary to deficits from a left thalamic CVA with right hemiparesis. The patient did not receive inpatient rehabilitation following his stroke and began to experience difficulty in functioning at his home leading to his admission. His diagnoses include right upper extremity edema, which is improving, CVA with right hemiparesis, essential tremor in the upper extremities, chronic kidney disease stage 4-5, coronary artery disease with history of myocardial infarction, status post coronary artery bypass graft, insulin-dependent diabetes mellitus, premorbid diabetic neuropathy, hyperlipidemia, hypertension, and depression. A complete description of his medical condition and history can be found in his medical record. Neuropsychological consultation was requested to provide assistance in the assessment of cognitive and emotional status and to provide recommendations and services. Prior to this most recent hospitalization, he was living with his in their home. He has one child. He is a high school graduate with 3 years of college. 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 Prior history of treatment for depression and anxiety is reported. He also has a history of tobacco abuse that was discontinued 36 years ago that was severe and included approximately four packages of cigarettes per day. TECHNIQUES UTILIZED: Clinical interview, review of medical records, staff consultation and behavioral observation, mini mental status exam 2 standard version and brief abstract reasoning test and clock drawing. EXAMINATION FINDINGS: The patient was alert and cooperative with the assessment. He described his symptoms to include anxiety and variability in memory. He does not report difficulty with sleep, appetite or word finding. [address] [address] CONSULTATION Name: SILVANO JACKSON Room #: 504-1 [facility] IN .R.#: [id number] Admission: 05/22/18 Attend Phys: Rolan Hernandez MD Discharge: 06/01/18 Date of : 43 Report #: [id number] Subjective depression is also acknowledged. He does not report a history of alcohol or cannabis abuse. His performance on the MMSE 2 brief version was in the mild range of impairment with a raw score of 13/16 and a T score of 36. He was 3/3 for initial registration, 4/5 for orientation to time, 5/[address] and 1/3 for immediate recall of 3 items after a brief time delay and distraction. Performance improved on the standard version of the MMSE 2 to a raw score 25 and a T score of 42. He was 4/5 for serial 7's. The patient was 2/2 for naming, 1/1 for repetition, 3/3 for comprehension. He could read and follow a single command and dictate a sentence. He was not asked to write as he is hemiparetic on the right side. Brief abstract reasoning test was 6/8, which is within normal limits. 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 Unspecified anxiety disorder with depressed mood. RECOMMENDATIONS: Continued assistance in the management of medication, nutrition and finances. The use of compensatory strategies for memory and concentration. Family education in regard to variability in cognition and methods to assist him in compensation. A followup neuropsych assessment would be of benefit to clarify the severity of cognitive deficits in approximately 2-3 months following discharge. Verbal praise and complements about participation in therapy and rehabilitation with an emphasis on strengths and resources will also further improve mood and assist in overall adjustment. Thank you very much for allowing me to provide the consultation on this patient. <ELECTRONICALLY SIGNED> By: Ronn Ramirez, PhD 06/02/18 0646 1819 0118 Ronn Ramirez, PhD /nt
[~2018-05-22 14:17] MED LIST changes: +DEMADEX20 MG PO; +FUROSEMIDE20 MG/2 ML IV PUSH; +HEPARIN SO5000 UNIT/ SUBQ; +IPRAT-ALBUT 0.5-3 ML INH
[2018-05-22 15:00] VITALS: BP 158/58
[2018-05-22 19:20] VITALS: BP 148/56
[2018-05-23 05:46] LABS: HEMATOCRIT 25.2 % (42.0-52.0); HEMOGLOBIN 8.2 gm/dL (14.0-18.0); MCHC 32.6 g/dL (28.0-37.0); MCV 85.9 fL (80.0-100.0); RBC 2.93 mil/uL (4.50-6.00); RDW 15.2 % (10.5-14.5); WBC 7.9 thou/uL (4.0-11.0)
[2018-05-23 05:55] LABS: ALBUMIN 3.1 g/dL (3.4-5.0); CALCIUM 8.8 mg/dL (8.5-10.1); CREATININE 4.6 mg/dL (0.7-1.3); POTASSIUM 5.1 mmol/L (3.5-5.1)
[2018-05-23 19:45] VITALS: BP 145/46
[2018-05-24 06:38] LABS: ALBUMIN 3.1 g/dL (3.4-5.0); CALCIUM 8.8 mg/dL (8.5-10.1); CREATININE 5.1 mg/dL (0.7-1.3); PHOSPHORUS 6.1 mg/dL (2.5-4.9); POTASSIUM 5.1 mmol/L (3.5-5.1)
[2018-05-24 07:30] VITALS: BP 148/53
[2018-05-24 19:40] VITALS: BP 145/57
[2018-05-25 04:53] LABS: ALBUMIN 3.1 g/dL (3.4-5.0); CALCIUM 8.4 mg/dL (8.5-10.1); CREATININE 5.5 mg/dL (0.7-1.3); PHOSPHORUS 6.8 mg/dL (2.5-4.9); POTASSIUM 5.3 mmol/L (3.5-5.1)
[2018-05-25 07:30] VITALS: BP 144/45
[2018-05-25 19:35] VITALS: BP 132/60
[2018-05-26 08:57] VITALS: BP 137/46
[2018-05-26 19:25] VITALS: BP 128/50
[2018-05-27 06:53] LABS: ABSOLUTE NEUTROPHILS 3.9 thou/uL (1.4-8.2); BASOPHILS 0.8 % (0.0-2.0); EOSINOPHILS 4.5 % (0.0-3.0); HEMATOCRIT 27.3 % (42.0-52.0); HEMOGLOBIN 9.1 gm/dL (14.0-18.0); LYMPHOCYTES 20.5 % (24.0-44.0); MCH 28.6 pg (26.0-34.0); MCHC 33.2 g/dL (28.0-37.0); MCV 86.3 fL (80.0-100.0); MONOCYTES 7.5 % (1.0-8.0); POLYS 66.7 % (36.0-66.0); RBC 3.17 mil/uL (4.50-6.00); RDW 15.4 % (10.5-14.5); WBC 5.8 thou/uL (4.0-11.0)
[2018-05-27 07:13] LABS: CALCIUM 8.9 mg/dL (8.5-10.1); CREATININE 5.9 mg/dL (0.7-1.3); MAGNESIUM 2.6 mg/dL (1.8-2.4); POTASSIUM 4.8 mmol/L (3.5-5.1)
[2018-05-27 07:57] LABS: PLATELET COUNT 92 thou/uL (150-400)
[2018-05-27 08:05] VITALS: BP 134/37
[2018-05-27 20:40] VITALS: BP 157/68
[2018-05-28 07:04] LABS: ALBUMIN 3.1 g/dL (3.4-5.0); CALCIUM 8.7 mg/dL (8.5-10.1); CREATININE 5.7 mg/dL (0.7-1.3); PHOSPHORUS 7.6 mg/dL (2.5-4.9); POTASSIUM 4.9 mmol/L (3.5-5.1)
[2018-05-28 08:48] VITALS: BP 135/44
[2018-05-28 20:25] VITALS: BP 154/59
[2018-05-29 07:34] LABS: ALBUMIN 3.1 g/dL (3.4-5.0); CALCIUM 8.3 mg/dL (8.5-10.1); CREATININE 5.6 mg/dL (0.7-1.3); PHOSPHORUS 7.2 mg/dL (2.5-4.9); POTASSIUM 5.1 mmol/L (3.5-5.1)
[2018-05-29 07:40] VITALS: BP 136/46
[2018-05-29 19:43] VITALS: BP 164/62
[2018-05-30 07:08] LABS: ALBUMIN 3.2 g/dL (3.4-5.0); CALCIUM 9.2 mg/dL (8.5-10.1); CREATININE 5.6 mg/dL (0.7-1.3)
[2018-05-30 07:11] VITALS: BP 153/59
[2018-05-30 19:15] VITALS: BP 168/60
[2018-05-31 08:25] VITALS: BP 136/52
[2018-05-31 16:50] VITALS: BP 183/72
[2018-06-01 06:52] LABS: ALBUMIN 3.1 g/dL (3.4-5.0); CALCIUM 8.5 mg/dL (8.5-10.1); CREATININE 5.2 mg/dL (0.7-1.3); PHOSPHORUS 5.4 mg/dL (2.5-4.9); POTASSIUM 5.3 mmol/L (3.5-5.1)
[2018-06-01 08:00] VITALS: BP 150/57
[2018-06-01 09:31] VITALS: BP 150/57
[2018-06-01] MEDS ORDERED: DEMADEX20 MG PO (10:04)
[2018-06-01] MEDS ORDERED: SENNA8.6 MG PO (10:04)
[2018-06-01] MEDS ORDERED: RENVELA800 MG PO (10:04)
[2018-06-01] MEDS ORDERED: IPRAT-ALBUT 0.5-3 ML INH (10:04)
[2018-06-01] MEDS ORDERED: COLACE100 MG PO (10:04)
[2018-06-01 10:31] VITALS: BP 150/57
[2018-06-01 11:28] VITALS: BP 150/57
[2018-06-01] MEDS ORDERED: NEBULIZER MISCELL (11:29)
[2018-06-01 13:27] VITALS: BP 150/57
== END 2018-06-01 14:00 | disposition home health service (06) | DRG 65 ==
PROVIDERS: Hospitalist; Internal Medicine Nephrology; Nurse Practitioner; Nurse Practitioner Family
DX: I63.9 Cerebral infarction, unspecified (principal); N18.5 Chronic kidney disease, stage 5; I12.0 Hypertensive chronic kidney disease with stage 5 chronic kidney disease or end stage renal disease; G81.91 Hemiplegia, unspecified affecting right dominant side; I25.10 Atherosclerotic heart disease of native coronary artery without angina pectoris; E11.22 Type 2 diabetes mellitus with diabetic chronic kidney disease; E11.40 Type 2 diabetes mellitus with diabetic neuropathy, unspecified; E78.5 Hyperlipidemia, unspecified; G31.84 Mild cognitive impairment of uncertain or unknown etiology; F41.8 Other specified anxiety disorders; G25.0 Essential tremor; R33.9 Retention of urine, unspecified; E83.39 Other disorders of phosphorus metabolism; R53.81 Other malaise; I25.2 Old myocardial infarction; Z95.1 Presence of aortocoronary bypass graft; Z87.891 Personal history of nicotine dependence
CPT/HCPCS: 10112

== ENCOUNTER 2018-07-22 21:34 | Emergency (ER) | payer OTHER, BC ==
[~2018-07-22] VITALS: Ht 177.8 cm; Wt 99.8 kg
[~2018-07-22 21:34] MED LIST changes: +COLACE100 MG PO; +NEBULIZER MISCELL; +RENVELA800 MG PO; +SENNA8.6 MG PO
[2018-07-22] MEDS ORDERED: SENNA8.6 MG PO (23:02)
[2018-07-22 23:51] VITALS: BP 132/72
== END 2018-07-22 23:52 | disposition home or self-care (01) ==
LOC: ER 21:34
DX: K56.41 Fecal impaction (principal); R14.0 Abdominal distension (gaseous); K21.9 Gastro-esophageal reflux disease without esophagitis; E11.9 Type 2 diabetes mellitus without complications; I12.0 Hypertensive chronic kidney disease with stage 5 chronic kidney disease or end stage renal disease; E11.22 Type 2 diabetes mellitus with diabetic chronic kidney disease; N18.5 Chronic kidney disease, stage 5; I25.810 Atherosclerosis of coronary artery bypass graft(s) without angina pectoris; Z90.49 Acquired absence of other specified parts of digestive tract

== ENCOUNTER → 2019-03-18 | Outpatient (CLI) | payer OTHER, BC | LOC: RAD 14:34 | DX: Z11.1 Encounter for screening for respiratory tuberculosis (principal) ==

== ENCOUNTER 2019-04-23 19:43 | Emergency (ER) | payer OTHER, BC ==
[~2019-04-23] VITALS: Ht 180.3 cm; Wt 95.8 kg
--- NOTE | ~2019-04-23 | EMS ---
[facility] [address] [place] [address] EMS Patient Care Report Name: SILVANO JACKSON Room #: DEP WILLIAM Parra#: [id number] Admission: 04/23/19 Attend Phys: Discharge: 04/23/19 Date of : 41 Report #: [id number] THIS REPORT FOR: //name// Report Transmitted: 04/23/2019 23:[address] [facility] Incident [id number] @ 04/23/2019 18:32 Incident Location [address] [place] [address] Patient SILVANO JACKSON Male, 73 Years 1945 Patient Address [id number] [place] [address] Patient History Chronic Obstructive Pulmonary Disease (COPD),Kidney/Renal Failure,Cardiac - Stent,Dialysis,Type 2 Diabetes,Myocardial Infarction ([place]), Patient Allergies No known allergies, Patient Medications Novolog, Chief Complaint syncope Disposition Transported No Lights/[place] Reason Unconscious/Fainting Transported To [facility] Narrative Dispatched to a code 1 syncope. Arrived to find the patient seated in a chair in his kitchen in mild distress under the care of FD. Patient contact. Patient was extremely diaphoretic and pale. Hx taken, physical exam performed, initial [facility] [address] [place] [address] EMS Patient Care Report Name: SILVANO JACKSON Room #: DEP ER Fidel#: [id number] Admission: 04/23/19 Attend Phys: Discharge: 04/23/19 Date of : 41 Report #: [id number] vitals taken, and 12 lead performed. The patient stated that he was standing in the kitchen getting a glass of water, and the next thing he could remember was his waking him up in the kitchen. The patient stated he still felt a little dizzy. Patient denied head pain, chest pain, difficulty breathing, abd pain, headache, blurry vision or any other symptoms. Patient denied ever having a syncopal episode. Patient's stated that she was outside when she heard her fall. Patient's stated when she came in her was very lethargic and confused. The patient's house was extremely hot, with limited airflow, and no A/C. The patient requested transport to [facility] for evaluation. Patient moved to the ambulance, and transport was initiated. En route, vitals trended, and biocom delivered. The patients color and dizziness improved. Arrived to [facility] without incident. Patient sheeted to the bed, and report delivered to the nurse. Initial Vitals @PTAP: 99,R: 16,BP: 133/70,Pain: 0/10,GCS: 15,SpO2: 95,Revised Trauma: 12,[place] Suspected: false @18:55P: 98,R: 16,BP: 129/70,Pain: 0/10,GCS: 15,SpO2: 95,Revised Trauma: 12,[place] Suspected: false @PTAP: 97,R: 16,BP: 135/69,Pain: 0/10,GCS: 15,Glucose: 265,SpO2: 96,Revised Trauma: 12,[place] Suspected: false @19:37P: 80,R: 16,BP: 130/78,Pain: 0/10,GCS: 15,SpO2: 93,Revised Trauma: 12,[place] Suspected: false @19:07P: 90,R: 16,BP: 133/73,Pain: 0/10,GCS: 15,SpO2: 93,Revised Trauma: 12,[place] Suspected: false @19:32P: 76,R: 16,BP: 137/73,GCS: 15,SpO2: 95,Revised Trauma: 12,[place] Suspected: false Assessments @18:55MENTAL:Person Oriented,Event Oriented,Time Oriented,Place Oriented,SKIN:Hot,Pale,Diaphoresis,HEENT:Head/Face: No Abnormalities,LUNG SOUNDS:ABDOMEN:PELVIS//GI:EXTREMITIES:Right Arm: Other,Left Arm: No Abnormalities,PULSE:Radial: 2+ Normal,NEURO: Impression Syncope / Fainting Procedures @18:5512-Lead ECGResponse: UnchangedSucceeded@18:55ALS AssessmentResponse: UnchangedSucceeded Timeline [employer],BP: 133/70 M,PULSE: 99,RR: 16 R,SPO2: 95 Ox,ETCO2: ,BG: ,PAIN: 0,GCS: 15, [employer]PER[employer]OR,BP: 135/69 M,PULSE: 97,RR: 16 R,SPO2: 96 Ox,ETCO2: ,B,PAIN: 0,GCS: 15, 18:32,Call Received [facility] [address] [place] [address] EMS Patient Care Report Name: SILVANO JACKSON Room #: DEP WILLIAM aPrra#: [id number] Admission: 04/23/19 Attend Phys: Discharge: 04/23/19 Date of : 41 Report #: [id number] 18:32,Psap Call 18:32,Dispatched 18:34,En Route 18:46,On Scene 18:52,At Patient 18:55,ALS Assessment,Response: UnchangedSucceeded, 18:55,12-Lead ECG,Response: UnchangedSucceeded, 18:55,BP: 129/70 M,PULSE: 98,RR: 16 R,SPO2: 95 Ox,ETCO2: ,BG: ,PAIN: 0,GCS: 15, 19:07,BP: 133/73 M,PULSE: 90,RR: 16 R,SPO2: 93 Ox,ETCO2: ,BG: ,PAIN: 0,GCS: 15, 19:11,Depart Scene 19:32,BP: 137/73 M,PULSE: 76,RR: 16 R,SPO2: 95 Ox,ETCO2: ,BG: ,PAIN: ,GCS: 15, 19:37,BP: 130/78 M,PULSE: 80,RR: 16 R,SPO2: 93 Ox,ETCO2: ,BG: ,PAIN: 0,GCS: 15, 19:38,At Destination 20:00,Call Closed Disclaimer v1.1 Copyright 2019 [email or web address] This EMS Care Summary contains data elements from the applicable legal record (which may be displayed differently). It is designed to provide pertinent information for the following purposes: continuity of care, clinical quality, and state data reporting. The complete legal record is available to ED staff and administrators of the receiving hospital in [employer]'s Patient Tracker. All data is provided "as is."
[2019-04-23 20:06] LABS: ABSOLUTE NEUTROPHILS 5.8 thou/uL (1.4-8.2); BASOPHILS 1.4 % (0.0-2.0); HEMATOCRIT 42.8 % (42.0-52.0); HEMOGLOBIN 14.5 gm/dL (14.0-18.0); LYMPHOCYTES 19.4 % (24.0-44.0); MCH 31.6 pg (26.0-34.0); MCV 92.9 fL (80.0-100.0); MONOCYTES 9.1 % (1.0-8.0); PLATELET COUNT 109 thou/uL (150-400); POLYS 68.1 % (36.0-66.0); RDW 14.9 % (10.5-14.5); WBC 8.5 thou/uL (4.0-11.0)
[2019-04-23 20:16] LABS: CALCIUM 9.7 mg/dL (8.5-10.1); CREATININE 3.1 mg/dL (0.7-1.3)
[2019-04-23 20:18] LABS: ALBUMIN 3.9 g/dL (3.4-5.0); DIRECT BILIRUBIN 0.1 mg/dL (<0.1-0.3); TOTAL BILIRUBIN 0.4 mg/dL (<0.1-1.0); TOTAL PROTEIN 8.6 g/dL (6.4-8.2)
[2019-04-23] MEDS ORDERED: TOUJEO SOL300 UNIT/1 SUBQ (20:40)
[2019-04-23] MEDS ORDERED: NOVOLOG100 UNIT/1 SUBQ (20:43)
[2019-04-23 23:00] VITALS: BP 143/51
--- NOTE | 2019-04-24 11:32 | EKG ---
[address] [address] ELECTROCARDIOGRAM REPORT Name: SILVANO JACKSON LEAH [id number] Admission: 04/23/19 Attend Phys: Discharge: 04/23/19 Date of : 41 Report #: [id number] THIS REPORT FOR: //name// [facility] ED Test Date: 2019-04-23 Test Time: 19:59:00 Pat Name: SILVANO JACKSON Department: Room: Gender: M [employer]: KANNAN : 1945 Requested By: Carina Rockwell Order Number: [id number] MD: Didier Raymundo Measurements Intervals [place] Rate: 75 P: 23 PA: 157 QRS: 158 QRSD: 91 T: 94 QT: 402 QTc: 449 Interpretive Statements Sinus rhythm Probable left atrial enlargement Consider right ventricular hypertrophy Inferior infarct, old Baseline wander in lead(s) V5 Compared to ECG 05/20/2018 20:10:34 Myocardial infarct finding now present ST (T wave) deviation no longer present Electronically Signed On 04-24-2019 11:32:14 CDT by Didier Raymundo [email or web address] <ELECTRONICALLY SIGNED> By: Didier Raymundo MD 04/24/19 1132 58 58 Didier Raymundo MD /EPI
== END 2019-04-23 23:00 | disposition home or self-care (01) ==
LOC: ER 19:43
PROVIDERS: Emergency Medicine
DX: I95.1 Orthostatic hypotension (principal); D69.1 Qualitative platelet defects; E11.22 Type 2 diabetes mellitus with diabetic chronic kidney disease; I11.0 Hypertensive heart disease with heart failure; N18.6 End stage renal disease; I25.10 Atherosclerotic heart disease of native coronary artery without angina pectoris; I25.2 Old myocardial infarction; Z95.1 Presence of aortocoronary bypass graft; Z90.49 Acquired absence of other specified parts of digestive tract; Z90.89 Acquired absence of other organs; Z98.890 Other specified postprocedural states; Z86.2 Personal history of diseases of the blood and blood-forming organs and certain disorders involving the immune mechanism; Z79.4 Long term (current) use of insulin; Z99.2 Dependence on renal dialysis; W18.39XA Other fall on same level, initial encounter; Y92.89 Other specified places as the place of occurrence of the external cause; Y93.89 Activity, other specified; Y99.8 Other external cause status

== ENCOUNTER 2019-08-06 16:38 | Emergency (ER) | payer OTHER, BC ==
[~2019-08-06] VITALS: Ht 175.3 cm; Wt 90.7 kg
[2019-08-06 17:13] LABS: HEMATOCRIT 34.8 % (42.0-52.0); HEMOGLOBIN 11.5 gm/dL (14.0-18.0); MCH 30.6 pg (26.0-34.0); MCV 92.7 fL (80.0-100.0); RBC 3.75 mil/uL (4.50-6.00); RDW 14.5 % (10.5-14.5); WBC 8.5 thou/uL (4.0-11.0)
[2019-08-06 17:22] LABS: APTT 28.3 Seconds (24.5-32.8); PROTIME 9.9 Seconds (9.3-11.4)
[2019-08-06 18:25] VITALS: BP 139/59
== END 2019-08-06 18:20 | disposition home or self-care (01) ==
LOC: ER 16:38
PROVIDERS: Emergency Medicine
DX: T82.838A Hemorrhage due to vascular prosthetic devices, implants and grafts, initial encounter (principal); N99.62 Intraoperative hemorrhage and hematoma of a genitourinary system organ or structure complicating other procedure; I25.10 Atherosclerotic heart disease of native coronary artery without angina pectoris; E11.22 Type 2 diabetes mellitus with diabetic chronic kidney disease; I12.0 Hypertensive chronic kidney disease with stage 5 chronic kidney disease or end stage renal disease; N18.6 End stage renal disease; Z90.49 Acquired absence of other specified parts of digestive tract; Z95.1 Presence of aortocoronary bypass graft; Y83.8 Other surgical procedures as the cause of abnormal reaction of the patient, or of later complication, without mention of misadventure at the time of the procedure; Y82.8 Other medical devices associated with adverse incidents